=== PATIENT | female | born 1965 | race Caucasian/White ===

== ENCOUNTER 2017-12-28 12:37 | Emergency (ER) | payer MEDICAID, SELFPAY ==
[2017-12-28 12:37] VITALS: BP 151/83; PULSE 96; RESP 15; TEMP 36.3; BMI 34.7
--- NOTE | 2017-12-28 13:09 | ED.VISSUMM ---
- ER Visit Summary Date of Service: 12/28/17 Chief Complaint: Bilateral Foot Pain History of Present Illness: The patient is a 52 F who states that she has bilateral feet pain due to muscle spasm. She states that she has a neurologic condition that is being evaluated by neurology and rheumatology pain management to her primary care doctor. This results in occasional muscle spasm. She takes she takes gabapentin and Flexeril. She states that when this happens she needs a shot of pain medicine and Valium. She called her doctors who told her to come to the emergency department today. She states that she did have Valium at home but her primary care doctor remove this due to possible interactions with Flexeril. Physical Examination: Afebrile vital signs are stable Gen: Well-nourished well-developed Head: Normocephalic atraumatic Eyes: Perrl EOMI ENT: TMs clear no rhinorrhea moist mucous membranes Neck: Supple no lymphadenopathy no JVD nontender CVS: Regular rate rhythm no murmurs normal S1-S2 Respiratory: No distress clear to auscultation bilaterally chest nontender Abdomen: Soft nontender nondistended normal bowel sounds no masses Extremity: no edema the bilateral feet have plantar curling of the toes. Skin: Normal color no rash Neuro: alert orientated ?3 CN II-XII Psych: Normal affect normal mood Emergency Department Course and Treatment: Patient will receive oxycodone and diazepam orally. There is no injectable diazepam available at this time for me to use. Patient will follow up with her doctors. Please see T-sheet findings if needed Impression: 1. Bilateral feet spasm This note was generated with [employer] dictation software. It may contain incorrect words, spelling, and punctuation that were not noted in review of the chart prior to signing ED Disposition - Plan for ED Patient: Disposition: Home or Assisted Living Chief Complaint: Other, Pain/Inj Instructions: ED Spasm Muscle Prescriptions: Diazepam [Valium] 5 mg PO Q8 PRN #5 tab PRN Reason: Muscle Spasm Referrals: Jackie Astorga DO [Primary Care Provider] - (call to arrange follow up appointment)
[2017-12-28] MEDS: oxyCODONE 5 MG Tablet 10 MG PO (13:28)
[2017-12-28] MEDS: diazePAM 5 MG Tablet PO (13:30)
== END 2017-12-28 15:15 | disposition home or self-care (01) ==
PROVIDERS: Emergency Provider Emergency Medicine
DX: M62.838 Other muscle spasm (principal); M25.571 Pain in right ankle and joints of right foot; M25.572 Pain in left ankle and joints of left foot; G71.11 Myotonic muscular dystrophy; Z79.899 Other long term (current) drug therapy
CPT/HCPCS: 99281

== ENCOUNTER 2018-09-27 11:44 | Observation (INO) | payer MEDICAID, SELFPAY ==
[2018-09-27] VITALS (16 sets, daily range): BP systolic 98–148; BP diastolic 55–90; PULSE 58–86; RESP 12–23; TEMP 36.1–36.9; O2SAT 94–97; BMI 34.7; BMI 35.4
--- NOTE | 2018-09-27 12:12 | EKG12_ITS ---
Test Reason : CP Blood Pressure : / mmHG Vent. Rate : 080 BPM Atrial Rate : 080 BPM P-R Int : 128 ms QRS Dur : 080 ms QT Int : 366 ms P-R-T Axes : 060 070 044 degrees QTc Int : 422 ms Normal sinus rhythm Nonspecific T wave abnormality Abnormal ECG Confirmed by TRIXIE SIMONS, RHONDA ([id number]), research editor [employer]EL ([id number]) on 09/29/2018 9:41:56 AM Referred By: CHRIS
--- NOTE | 2018-09-27 12:13 | RAD_ITS ---
STUDY: X-RAY CHEST REASON FOR EXAM: Female, 53 years old. One-week history of hypertension and chest pain. TECHNIQUE: PA and lateral views of the chest. COMPARISON: Comparison is made with prior study dated July 23, 2017. FINDINGS: EKG electrodes are seen. Stable elevation of the anterior aspect of the right hemidiaphragm. Stable calcified granuloma in the medial right lower lung. No acute abnormality is seen. There is no demonstrated pleural abnormality. Normal size heart. Normal mediastinum and karol. Normal visualized pulmonary arteries. Normal visualized aortic arch and descending thoracic aorta. Normal visualized thoracic spine. Normal visualized ribs, clavicles, and shoulders. There is no demonstrated abnormality of the visualized soft tissue structures of the upper abdomen. RAD/Chest PA and Lateral IMPRESSION: Normal x-ray examination of the chest. Electronically Signed: Alo Slater MD at 13:49 EST , Service support ,
--- NOTE | 2018-09-27 12:14 | ED.VISSUMM ---
- ER Visit Summary Date of Service: 09/27/18 Chief Complaint: Chest heaviness History of Present Illness: The patient is a 53 F who presents for 2 days of chest heaviness. She states it feels like an elephant is sitting on her chest. Onset was during exertion. The heaviness gets worse with exertion and patient states at that time she also becomes very sweaty. She will have associated shortness of breath with it. She denies fever, URI symptoms, cough, nausea, vomiting or diarrhea. She does have some associated left-sided abdominal pain that began 3 days ago and is sharp. Patient states her blood pressures also been high since mid last week and that is new for her. She has history of diabetes, high cholesterol, hysterectomy. Strong family history of coronary artery disease in all her parents and siblings. She denies any recent travel, surgery, history of DVT or PE, or oral contraceptive use. She is a smoker. Physical Examination: Vital signs: afebrile, hemodynamically stable, no hypoxia on room air General: well nourished, well developed, in no distress Skin: warm, dry, no rash, no pallor HEENT: normocephalic and atraumatic; PERRL, EOMI, moist mucous membranes Cardiovascular: regular rate and rhythm without murmurs, no peripheral edema, 2+ pulses all distal extremities Respiratory: No increased work of breathing, lungs are clear to auscultation bilaterally, no rales, rhonchi or wheezing Abdominal: Abdomen is soft, nontender with normoactive bowel sounds, no guarding or rebound, no masses MSK: Moves all extremities, no deformities, normal strength Neuro: Awake and alert, oriented ?4. No facial droop, sensation and motor function intact and symmetric Test Results: Abnormal Lab Results 09/27/18 09/27/18 09/27/18 12:42 12:42 12:42 WBC 8.2 RBC 4.83 Hgb 14.7 Hct 47.1 H MCV 97.5 MCH 30.4 MCHC 31.2 L RDW 13.3 RDW Differential 47.6 H Plt Count 201 MPV 10.0 Immature Gran % (Auto) 0.200 Neut % (Auto) 50.7 Lymph % (Auto) 40.7 [place] % (Auto) 4.9 Eos % (Auto) 3.1 Baso % (Auto) 0.4 Absolute Neuts (auto) 4.1 Absolute Lymphs (auto) 3.32 Total Counted Not Reportable PT 12.2 INR 0.9 APTT 26.5 D-Dimer Quant (PE/DVT) 0.56 H* Sodium 139 Potassium 4.1 Chloride 103 Carbon Dioxide 30.0 Anion Gap 6 BUN 17 Creatinine 1.05 H Estim Creat Clear Calc 51.26 Est GFR (MDRD) Af Amer 70 Est GFR (MDRD) Non-Af 58 L BUN/Creatinine Ratio 16.2 Glucose 134 H Calcium 9.1 Total Bilirubin 0.40 AST 25 ALT 31 Alkaline Phosphatase 70 Troponin I < 0.015 Total Protein 7.4 Albumin 3.7 Globulin 3.7 Albumin/Globulin Ratio 1.0 Lipase 159 Clinical Impression(s) from Imaging Studies Chest X-Ray 09/27/18 12:13 IMPRESSION: Normal x-ray examination of the chest. Electronically Signed: Alo Slater MD at 13:49 EST , Service support , Lung Scan-VQ ND 09/27/18 13:58 IMPRESSION: 1. VERY LOW PROBABILITY FOR PULMONARY EMBOLUS (<10%) 99m Tc DTPA aerosol ventilation / 99m Tc MAA pulmonary perfusion imaging examination, according to PIOPED II interpretive criteria with regard given to the presence of > 2 ventilation-perfusion matches without corresponding radiographic changes. (Sotsemy et al, Radiology 246: 941, 2008 Sowinter et al, J Nucl Med 49: 1741, 2008). Electronically Signed: Kishan Boss DO at 17:02 EST Tel , Service support , Medications Given Sodium Chloride () 1,000 mls @ 150 mls/hr IV .Q6H40M NABEEL Last Admin: 09/27/18 12:52 Dose: 150 mls/hr Discontinued Medications Aspirin (Aspirin, Baby) 324 mg PO X1 STA Stop: 09/27/18 12:13 Last Admin: 09/27/18 12:51 Dose: 324 mg Nitroglycerin (Nitrostat) 0.4 mg SUBLINGUAL Q5M NABEEL Stop: 09/27/18 12:26 Last Admin: 09/27/18 13:11 Dose: 0.4 mg Admin: 09/27/18 12:57 Dose: 0.4 mg Admin: 09/27/18 12:52 Dose: 0.4 mg Emergency Department Course and Treatment: Patient states she is allergic to aspirin and any medication that she gets more than 250 mg of. She states it gives her swelling in her lymph nodes. She said if the dose of aspirin is less than 250 mg she can take it. We discussed that this is not an allergy, and thus patient was given aspirin. Initial EKG showed a sinus rhythm with T wave flattening and T wave inversions in some of the anterolateral leads, consistent with patient's prior EKGs. No ischemic changes acutely noted. Initial troponin negative. Chest x-ray showed no acute process. Labs were otherwise unremarkable other than a d-dimer of 0.56. Age-adjusted this is still elevated. Patient is allergic to contrast dye and thus was unable to get a CT angiogram. VQ scan was performed and was very low probability for pulmonary embolism. Because patient has a concerning story, has multiple risk factors including family history, tobacco use, obesity and diabetes, and her age, she is moderate risk for 30-day MACE and would benefit from further cardiac workup (HEART score 5). Repeat EKG at 3 hours was unchanged from the initial one. Repeat troponin is pending. Patient will be discussed with the hospitalist for admission for further chest pain rule out. On reevaluation patient was feeling better. Treatment Plan: [] Disposition: [] Impression: chest pain, concern for ACS This note was generated with [employer] dictation software. It may contain incorrect words, spelling, and punctuation that were not noted in review of the chart prior to signing ED Disposition - Plan for ED Patient: Referrals: Jackie Astorga, [Primary Care Provider] -
[2018-09-27] MEDS: Aspirin 81 MG TAB.CHEW 324 MG PO (12:51)
[2018-09-27] MEDS: 0.9% Normal Saline 1,000 ML 150 ML IV (12:52)
[2018-09-27 12:56] LABS: Absolute Lymphocyte Count 3.32 X10^3/ul (0.83-4.51); Absolute Neutrophil Count 4.1 X10^3/uL (2.0-7.7); Basophil# 0.03 X10^3/uL; Basophil% 0.4 % (0-1); Eosinophil# 0.25 X10^3/uL; Eosinophils% 3.1 % (0-5); Hematocrit 47.1 % (37-47); Hemoglobin 14.7 g/dl (12.0-15.0); Lymphocyte # 3.32 X10^3/ul (4.0); Lymphocyte % 40.7 % (19-41); Mean Corp Hgb Conc 31.2 g/gl (32-36); Mean Corpuscular Hgb 30.4 pg (27.0-32.0); Mean Corpuscular Volume 97.5 fL (81-99); Monocyte% 4.9 % (0-10); Neutrophil # 4.14 X10^3/uL (2.7-7.7); Neutrophil % 50.7 % (47-70); Platelet Count 201 K/mm3 (150-450); RBC Distribution Width CV 13.3 % (11.6-14.6); RBC Distribution Width SD 47.6 fl (35.1-43.9); Red Blood Count 4.83 M/mm3 (4.2-5.4); White Blood Count 8.2 K/mm3 (4.4-11.0)
[2018-09-27 12:59] LABS: POSITIVE COUNT NO; POSITIVE DIFFERENTIAL NO; POSITIVE MORPHOLOGY NO
[2018-09-27 13:10] LABS: International Normalized Ratio 0.9; Partial Thromboplast Time 26.5 Seconds (24.1-36.2); Prothrombin Time (Protime)PT. 12.2 SECONDS (11.7-14.9)
[2018-09-27 13:13] LABS: AST(SGOT) 25 U/L (15-37); Alanine Aminotransfer ALT/SGPT 31 U/L (13-56); Albumin, Serum 3.7 g/dL (3.2-5.0); Alkaline Phosphatase 70 U/L (45-117); Anion Gap 6 (5-15); BUN 17 mg/dL (7-18); BUN/Creat Ratio 16.2 RATIO (10-20); Calcium,Total 9.1 mg/dL (8.5-10.1); Chloride 103 mmol/L (98-107); Creatinine, Serum 1.05 mg/dL (0.55-1.02); EST Glomerular Filtration Rate 58 mL/min (>60); Est Glom Filt Rate - Afr Amer 70 mL/min (>60); Estimated Creatinine Clearance 51.26 ml/min; Globulin 3.7 g/dL (2.2-4.2); Glucose 134 mg/dL (74-106); Lipase 159 U/L (73-393); Potassium 4.1 mmol/L (3.5-5.1); Protein, Total 7.4 g/dL (6.4-8.2); Sodium Level 139 mmol/L (136-145)
[2018-09-27 13:20] LABS: D-Dimer Quantitative (DVT/PE) 0.56 FEU/ug/m (0.27-0.49)
--- NOTE | 2018-09-27 13:21 | ED.RN ---
ddimer 0.[address] called from the lab. dr coronado aware
--- NOTE | 2018-09-27 13:58 | NM_ITS ---
CLINICAL: 53-year-old female with history of chest discomfort. VENTILATION-PERFUSION LUNG SCINTIGRAPHY COMPARISON: Plain film chest radiograph 09/27/2018 FINDINGS: The patient was administered 42.7 mCi 99m Tc DTPA aerosol. The aerosol ventilation study demonstrates mild heterogeneous ventilation in the bilateral lung hart without corresponding radiographic changes visualized on review of plain film chest x-ray dated 09/27/2018. Central clumping of the aerosol is not identified. Following the intravenous administration of 5.5 mCi of 99m Tc MAA, the pulmonary perfusion study reveals matching non-uniform perfusion in the right and left lungs correlating with the previously defined ventilation pattern. No moderate subsegmental or large segmental ventilation-perfusion mismatches are noted. NM/Quant Lung Vent/Perf Scan IMPRESSION: 1. VERY LOW PROBABILITY FOR PULMONARY EMBOLUS (<10%) 99m Tc DTPA aerosol ventilation / 99m Tc MAA pulmonary perfusion imaging examination, according to PIOPED II interpretive criteria with regard given to the presence of > 2 ventilation-perfusion matches without corresponding radiographic changes. (Sotsman et al, Radiology 246: 941, 2008 Sowinter et al, J Nucl Med 49: 1741, 2008). Electronically Signed: Kishan Boss DO at 17:02 EST Tel , Service support ,
--- NOTE | 2018-09-27 16:11 | EKG12_ITS ---
Test Reason : CP REPEAT Blood Pressure : / mmHG Vent. Rate : 061 BPM Atrial Rate : 061 BPM P-R Int : 130 ms QRS Dur : 082 ms QT Int : 572 ms P-R-T Axes : 031 062 055 degrees QTc Int : 575 ms Normal sinus rhythm Nonspecific T wave abnormality Prolonged QT Abnormal ECG Confirmed by TRIXIE SIMONS, RHONDA ([id number]), editor dictionary [employer] ([id number]) on 09/29/2018 9:54:06 AM Referred By: VIRGEN Confirmed By:RHONDA MARCUM MD
--- NOTE | 2018-09-27 18:22 | HP.PCM_ITS ---
<Gilma Snow - Last Filed: 09/27/18 18:39> Problem List (1) Ureter, calculus Status: Resolved Comment: admitted with fever and infection has 5mm stone blocking left kidney had UTI now with fevers. (2) RSD (reflex sympathetic dystrophy) Status: Chronic (3) History of kidney stones Status: Chronic (4) Recurrent UTI Status: Chronic (5) Tobacco abuse Status: Chronic (6) Obesity Status: Chronic (7) Type 2 diabetes mellitus Status: Chronic History of Present Illness Date of Admission: 09/27/18 Chief Complaint: Chest pain. The patient is a 53 year old F who presents emergency room due to chest pain. She reports this began Thursday and has occurred intermittently since that time. She reports chest pressure in the center of her chest, feeling like an elephant is sitting on her chest. She describes associated shortness of breath. Denies pain radiation. Denies dizziness, lightheadedness, palpitations. Patient reports a significant family history of heart disease including her mother and father as well as 2 siblings which passed recently due to heart disease. She denies history of cardiac disease. Has never had a stress test or cardiac work up. Patient reports she was referred to the emergency room due to increased blood pressure which she has had for the past week. She states her blood pressure was elevated at primary care office and then also noted to be elevated at follow-up appointment with pain management. Given persistent elevated blood pressure, she reports she was notified by primary care physician to go to the ER. She has a past medical history of chronic pain syndrome, history of kidney stones, tobacco dependence, type 2 diabetes mellitus, chronic kidney disease stage III, obesity. Past Medical History Past Medical History (Chronic Problems): Chronic Problems RSD (reflex sympathetic dystrophy) (Chronic) History of kidney stones (Chronic) Recurrent UTI (Chronic) Tobacco abuse (Chronic) Obesity (Chronic) Type 2 diabetes mellitus (Chronic) Allergies acetaminophen [From Tylenol] Allergy (Verified 12/28/17 12:39) Swollen lymph glands ibuprofen Allergy (Verified 12/28/17 12:39) Swollen lymph glands iodine Allergy (Verified 12/28/17 12:39) Swelling latex Allergy (Verified 12/28/17 12:39) Swelling Penicillins Allergy (Verified 12/28/17 12:39) Swelling shellfish derived Allergy (Verified 12/28/17 12:39) Swelling Sulfa (Sulfonamide Antibiotics) Allergy (Verified 12/28/17 12:39) Swelling 'MYCIN' Adverse Reaction (Uncoded 12/28/17 12:39) Hives ID BAND AND HARD PLASTIC Adverse Reaction (Uncoded 12/28/17 12:39) Rash Home Medications: Ambulatory Orders Medication Instructions Recorded Gabapentin [Neurontin] 300 mg PO TID 12/28/17 Colchicine [Mitigare] 0.6 mg PO BID 09/27/18 Cyclobenzaprine [Flexeril] 10 mg PO TID PRN PRN 09/27/18 Doxycycline 100 mg PO BID 09/27/18 Febuxostat [Uloric] 40 mg PO DAILY 09/27/18 Hydrocodone/Acetaminophen 1 each PO BID PRN 09/27/18 [Hydrocodon-Acetaminophen 5-325] Metformin HCl [Glucophage] 500 mg PO BIDCM 09/27/18 Zolpidem Tartrate [Ambien] 5 mg PO QHS 09/27/18 Surgical History: - - Kidney stone removal/left ureteral stent placement, hysterectomy/tubal ligation Psychiatric History: No pertinent psych hx 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 Denies: Edema, Light Headedness, Palpitations, Syncope Respiratory: Reports: Shortness of Breath - Associated with chest pain. Denies: Cough, Shortness of breath at rest, Sputum production Gastrointestinal: Denies: Abdominal Pain, Nausea, Vomiting Genitourinary: Denies: Dysuria Musculoskeletal: Denies: Joint Pain, Joint Tenderness Skin: Denies: Rash, Wounds Neurological: Denies: Numbness, Tingling, Focal weakness Psychiatric: Denies: Anxiety, Depression, Homicidal Ideations, Suicidal Ideations Hematologic/ Lymphatic: Denies: Easy Bruising, Easy Bleeding VTE Information - Inpt Only VTE Present on Admission: No VTE Mechan Device Prophylaxis: None VTE Pharm Prophylaxis ordered?: Yes - Physical Exam General: Alert, Oriented x3, Cooperative HEENT: Atraumatic, PERRLA, EOMI, Normocephalic Neck: Supple, No JVD, Negative Carotid Bruits Lungs: Clear to auscultation, Diminished Cardiovascular: Regular rate, Regular Rhythm, Normal S1, Normal S2, No murmurs Abdomen: Bowel Sounds Present, Soft, Non Tender, Non-Distended Extremities: No clubbing, No cyanosis, No edema, Capillary Refill Less than 3 Seconds Skin: No rashes, No breakdown Musculoskeletal: No Tenderness to Palpation of Joints or Extremities Neurological: Cranial nerves II-XII grossly intact, Neuro grossly intact Psych/Mental Status: Normal Affect, Appropriate Vital Signs Temp Pulse Resp BP Pulse Ox 97.0 F L 72 23 H 131/65 H 96 09/27/18 11:45 09/27/18 17:14 09/27/18 17:14 09/27/18 18:00 09/27/18 17:14 Oxygen Flow Rate (L/min) 2 Oxygen Delivery Method Nasal Cannula Weight: 196 lb 6.91 oz Body Mass Index (BMI) 34.7 Laboratory Tests Past 24 Hrs 09/27/18 09/27/18 09/27/18 12:42 12:42 12:42 WBC 8.2 RBC 4.83 Hgb 14.7 Hct 47.1 H MCV 97.5 MCH 30.4 MCHC 31.2 L RDW 13.3 RDW Differential 47.6 H Plt Count 201 MPV 10.0 Immature Gran % (Auto) 0.200 Neut % (Auto) 50.7 Lymph % (Auto) 40.7 [place] % (Auto) 4.9 Eos % (Auto) 3.1 Baso % (Auto) 0.4 Absolute Neuts (auto) 4.1 Absolute Lymphs (auto) 3.32 Total Counted Not Reportable PT 12.2 INR 0.9 APTT 26.5 D-Dimer Quant (PE/DVT) 0.56 H* Sodium 139 Potassium 4.1 Chloride 103 Carbon Dioxide 30.0 Anion Gap 6 BUN 17 Creatinine 1.05 H Estim Creat Clear Calc 51.26 Est GFR (MDRD) Af Amer 70 Est GFR (MDRD) Non-Af 58 L BUN/Creatinine Ratio 16.2 Glucose 134 H Calcium 9.1 Total Bilirubin 0.40 AST 25 ALT 31 Alkaline Phosphatase 70 Troponin I < 0.015 Total Protein 7.4 Albumin 3.7 Globulin 3.7 Albumin/Globulin Ratio 1.0 Lipase 159 09/27/18 16:40 WBC RBC Hgb Hct MCV MCH MCHC RDW RDW Differential Plt Count MPV Immature Gran % (Auto) Neut % (Auto) Lymph % (Auto) [place] % (Auto) Eos % (Auto) Baso % (Auto) Absolute Neuts (auto) Absolute Lymphs (auto) Total Counted PT INR APTT D-Dimer Quant (PE/DVT) Sodium Potassium Chloride Carbon Dioxide Anion Gap BUN Creatinine Estim Creat Clear Calc Est GFR (MDRD) Af Amer Est GFR (MDRD) Non-Af BUN/Creatinine Ratio Glucose Calcium Total Bilirubin AST ALT Alkaline Phosphatase Troponin I < 0.015 Total Protein Albumin Globulin Albumin/Globulin Ratio Lipase Assessment/Plan All Active Problems Ureter, calculus (Resolved) 1. Chest pain-EKG in ED with T wave flattening and T wave inversion. No acute ischemic changes. Troponin negative. Chest x-ray unremarkable. Cycle enzymes. Stress test in a.m. Lipid panel in a.m. D-dimer elevated in ER. Lung VQ scan with very low probability for PE. 2. Elevated blood pressure without prior history of hypertension-patient reports her blood pressure has been greater than 170 systolically at home. Currently blood pressure not markedly elevated. Continue to monitor. 3. Type 2 diabetes mellitus-hold metformin regimen. Accu-Cheks ACHS with SSI. 4. Chronic kidney disease stage III-at baseline. 5. Gout-continue home colchicine, uloric regimen. 6. Obesity-encouraged diet and lifestyle modifications. 7. Tobacco dependence-encouraged smoking cessation. DVT prophylaxis- lovenox sc This patient was seen by KEVYN Mittal under the supervision of Dr. Horowitz. <Oli Horowitz F - Last Filed: 09/27/18 19:13> History of Present Illness The patient is a 53 year old F [] Past Medical History Allergies acetaminophen [From Tylenol] Allergy (Verified 12/28/17 12:39) Swollen lymph glands ibuprofen Allergy (Verified 12/28/17 12:39) Swollen lymph glands iodine Allergy (Verified 12/28/17 12:39) Swelling latex Allergy (Verified 12/28/17 12:39) Swelling Penicillins Allergy (Verified 12/28/17 12:39) Swelling shellfish derived Allergy (Verified 12/28/17 12:39) Swelling Sulfa (Sulfonamide Antibiotics) Allergy (Verified 12/28/17 12:39) Swelling 'MYCIN' Adverse Reaction (Uncoded 12/28/17 12:39) Hives ID BAND AND HARD PLASTIC Adverse Reaction (Uncoded 12/28/17 12:39) Rash - Physical Exam Vital Signs Temp Pulse Resp BP Pulse Ox 98.4 F 66 18 132/75 H 96 09/27/18 18:28 09/27/18 18:51 09/27/18 18:28 09/27/18 18:28 09/27/18 18:28 Oxygen Flow Rate (L/min) 2 Oxygen Delivery Method Room Air Weight: 199 lb 11.821 oz Body Mass Index (BMI) 35.4 Laboratory Tests Past 24 Hrs 09/27/18 09/27/18 09/27/18 12:42 12:42 12:42 WBC 8.2 RBC 4.83 Hgb 14.7 Hct 47.1 H MCV 97.5 MCH 30.4 MCHC 31.2 L RDW 13.3 RDW Differential 47.6 H Plt Count 201 MPV 10.0 Immature Gran % (Auto) 0.200 Neut % (Auto) 50.7 Lymph % (Auto) 40.7 [place] % (Auto) 4.9 Eos % (Auto) 3.1 Baso % (Auto) 0.4 Absolute Neuts (auto) 4.1 Absolute Lymphs (auto) 3.32 Total Counted Not Reportable PT 12.2 INR 0.9 APTT 26.5 D-Dimer Quant (PE/DVT) 0.56 H* Sodium 139 Potassium 4.1 Chloride 103 Carbon Dioxide 30.0 Anion Gap 6 BUN 17 Creatinine 1.05 H Estim Creat Clear Calc 51.26 Est GFR (MDRD) Af Amer 70 Est GFR (MDRD) Non-Af 58 L BUN/Creatinine Ratio 16.2 Glucose 134 H Calcium 9.1 Total Bilirubin 0.40 AST 25 ALT 31 Alkaline Phosphatase 70 Troponin I < 0.015 Total Protein 7.4 Albumin 3.7 Globulin 3.7 Albumin/Globulin Ratio 1.0 Lipase 159 09/27/18 16:40 WBC RBC Hgb Hct MCV MCH MCHC RDW RDW Differential Plt Count MPV Immature Gran % (Auto) Neut % (Auto) Lymph % (Auto) [place] % (Auto) Eos % (Auto) Baso % (Auto) Absolute Neuts (auto) Absolute Lymphs (auto) Total Counted PT INR APTT D-Dimer Quant (PE/DVT) Sodium Potassium Chloride Carbon Dioxide Anion Gap BUN Creatinine Estim Creat Clear Calc Est GFR (MDRD) Af Amer Est GFR (MDRD) Non-Af BUN/Creatinine Ratio Glucose Calcium Total Bilirubin AST ALT Alkaline Phosphatase Troponin I < 0.015 Total Protein Albumin Globulin Albumin/Globulin Ratio Lipase Code Visit Addendum: Dr. Horowitz I personally examined the patient and reviewed the chart. I agree with the above. 53-year-old female with a history of diabetes as well as tobacco use presents with chest pain since Thursday. She states that it is intermittent and it feels like an elephant is sitting on her chest. She does have associated shortness of breath. She has a family history of heart disease with both of her parents and a sibling. In the ER her troponin was negative and her EKG was unremarkable. Will admit for serial enzymes and a stress test in the morning, she does not think she will be able to perform a treadmill stress test because of her RSD. OBSV E&M: [id number] Initial observation care L3
[2018-09-27] MEDS: Zolpidem Tartrate 5 MG Tablet PO (20:56)
[2018-09-27 22:21] LABS: Bedside Glucose 141 mg/dL (70-110)
[2018-09-27] MEDS: Gabapentin 300 MG Capsule PO (23:02)
[2018-09-27] MEDS: Insulin Lispro 100 UNIT/ML INSULN.PEN SQ (23:05)
--- NOTE | 2018-09-27 23:15 | NURSING ---
assisted patient to [facility] across from room 202 this evening. while getting patient a cup of coffee, patient became very SOB and lightheaded. stated she felt like she could not catch her breath. patient stated she was also having sharp chest pain under her left breast. this RN called Aicha charge account clerk to come bring WC to [facility]. patient was wheeled back to her room. RT was called to do an EKG. (no changes were noted on EKG). VSS. patient stated she felt like she was getting her breath back and that her chest pain was resolving.
--- NOTE | 2018-09-27 23:19 | EKG12_ITS ---
Test Reason : DIZZY Blood Pressure : / mmHG Vent. Rate : 062 BPM Atrial Rate : 062 BPM P-R Int : 126 ms QRS Dur : 082 ms QT Int : 422 ms P-R-T Axes : 020 070 068 degrees QTc Int : 428 ms Normal sinus rhythm Nonspecific T wave abnormality Abnormal ECG Confirmed by TRIXIE SIMONS, RHONDA ([id number]), mapping editor [employer] ([id number]) on 09/29/2018 10:10:33 AM Referred By: DR JACKSON Confirmed By:RHONDA MARCUM MD
[2018-09-27 23:26] LABS: Bedside Glucose 163 mg/dL (70-110)
[2018-09-28 03:01] VITALS: PULSE 68
[2018-09-28 03:55] VITALS: BP 93/65; PULSE 62; RESP 18; TEMP 36.8; O2SAT 96
[2018-09-28 05:43] LABS: Absolute Neutrophil Count 2.9 X10^3/uL (2.0-7.7); Basophil# 0.02 X10^3/uL; Basophil% 0.2 % (0-1); Eosinophil# 0.29 X10^3/uL; Eosinophils% 3.6 % (0-5); Hematocrit 43.8 % (37-47); Hemoglobin 13.6 g/dl (12.0-15.0); Lymphocyte % 54.3 % (19-41); Mean Corp Hgb Conc 31.1 g/gl (32-36); Mean Corpuscular Hgb 30.6 pg (27.0-32.0); Mean Corpuscular Volume 98.4 fL (81-99); Mean Platelet Vol. 10.2 fl (6.2-12.0); Monocyte# 0.47 X10^3/uL; Monocyte% 5.8 % (0-10); Neutrophil # 2.91 X10^3/uL (2.7-7.7); Neutrophil % 35.9 % (47-70); Platelet Count 175 K/mm3 (150-450); RBC Distribution Width CV 13.5 % (11.6-14.6); RBC Distribution Width SD 48.3 fl (35.1-43.9); Red Blood Count 4.45 M/mm3 (4.2-5.4); White Blood Count 8.1 K/mm3 (4.4-11.0)
[2018-09-28 05:48] LABS: POSITIVE COUNT NO; POSITIVE DIFFERENTIAL NO; POSITIVE MORPHOLOGY NO
[2018-09-28 05:54] LABS: International Normalized Ratio 0.9; Partial Thromboplast Time 28.5 Seconds (24.1-36.2); Prothrombin Time (Protime)PT. 11.9 SECONDS (11.7-14.9)
--- NOTE | 2018-09-28 05:55 | EKG12_ITS ---
Test Reason : AM EKG Blood Pressure : / mmHG Vent. Rate : 061 BPM Atrial Rate : 061 BPM P-R Int : 122 ms QRS Dur : 082 ms QT Int : 434 ms P-R-T Axes : 039 079 082 degrees QTc Int : 436 ms Normal sinus rhythm T wave abnormality, consider anterior ischemia Abnormal ECG Confirmed by TRIXIE SIMONS, RHONDA ([id number]), electronic news gathering editor [employer] ([id number]) on 09/29/2018 10:09:14 AM Referred By: ASHLY Confirmed By:RHONDA MARCUM MD
[2018-09-28 06:03] LABS: Anion Gap 7 (5-15); BUN 20 mg/dL (7-18); BUN/Creat Ratio 20.9 RATIO (10-20); Calcium,Total 8.4 mg/dL (8.5-10.1); Chloride 105 mmol/L (98-107); Cholesterol 214 mg/dL (200); Creatinine, Serum 0.96 mg/dL (0.55-1.02); EST Glomerular Filtration Rate 65 mL/min (>60); Est Glom Filt Rate - Afr Amer 78 mL/min (>60); Estimated Creatinine Clearance 56.06 ml/min; Glucose 146 mg/dL (74-106); High Density Lipoprotein 28 mg/dL; Potassium 3.8 mmol/L (3.5-5.1); Sodium Level 142 mmol/L (136-145); Triglycerides 454 mg/dL
--- NOTE | 2018-09-28 06:49 | STEWCON_ITS ---
Reason For Study: CHEST PAIN Stress Results Protocol: Dobutamine Stress Echocardiogram Maximum Predicted HR: 167 bpm Target HR: 142 bpm % Maximum Predicted HR: 80 % DurationHeart Rate Stage (mm:ss) (bpm) BP Dose Comment BASELINE 63 113/76 6 ML OF DILUTED DEFINITY USED DURING STRESS DSE- 10 MCG 3:27 68 142/90945.00 DSE- 20 MCG 4:59 133 160/82 20.00VASOVAGAL RESPONSE, SIFUENTES RECOVERY 70 109/63 Stress Duration: 8:26 mm:ss Maximum Stress HR: 133 bpm Baseline Echocardiogram Findings Stress Echo Wall motion Data Resting WM Intermediate WM Stress WM Resting Wall Motion Wall Motion Int. Wall Motion Stress All segments Normal. All segments Hyperkinetic. All segments Hyperkinetic. Ejection Fraction 60 %. Ejection Fraction 70 %. Ejection Fraction 80 %. Stress Results Arrhythmias: rare PVC during infusion Stopped secondary to: target heart rate achieved. EKG Data ECG BASELINE: NSR; NS ST/T WAVE ABNORMALITY. [facility] ECG: NONSPECIFIC ST/T WAVE ABNORMALITY. Symptoms with Stress No c/o chest discomfort during infusion / recovery. Interpretation Summary Negative (adequate) Dobutamine Stress Echocardiogram The study was technically difficult. Contrast injection was performed. Ordering Physician: Mikey Howard Referring Physician: Jackie Astorga DO Performed By: Herminio Hurt RCS
[2018-09-28 07:02] LABS: Bedside Glucose 155 mg/dL (70-110)
[2018-09-28 07:12] VITALS: PULSE 62
[2018-09-28 09:50] VITALS: BP 124/78; PULSE 72; RESP 18; TEMP 36.5; O2SAT 97
[2018-09-28] MEDS: Febuxostat 40 MG TABLET PO (10:00)
[2018-09-28] MEDS: Gabapentin 300 MG Capsule PO (10:00)
[2018-09-28] MEDS: HYDROcodone Bitartrate/Apap 5/325 Tablet PO (10:04)
[2018-09-28 10:06] LABS: Bedside Glucose 132 mg/dL (70-110)
--- NOTE | 2018-09-28 10:19 | DCINST_ITS ---
You will use the following diet at home:: Calorie/Carbohydrate Controlled (specify 1200, 1400, etc) Discharge Activity: Return to Normal Activity Call your doctor if you observe: Shortness of breath, Dizziness, Fainting spells, Chest pain Allergies/Adverse Reactions: Allergies acetaminophen [From Tylenol] Allergy (Verified 12/28/17 12:39) Swollen lymph glands ibuprofen Allergy (Verified 12/28/17 12:39) Swollen lymph glands iodine Allergy (Verified 12/28/17 12:39) Swelling latex Allergy (Verified 12/28/17 12:39) Swelling Penicillins Allergy (Verified 12/28/17 12:39) Swelling shellfish derived Allergy (Verified 12/28/17 12:39) Swelling Sulfa (Sulfonamide Antibiotics) Allergy (Verified 12/28/17 12:39) Swelling 'MYCIN' Adverse Reaction (Uncoded 12/28/17 12:39) Hives ID BAND AND HARD PLASTIC Adverse Reaction (Uncoded 12/28/17 12:39) Rash Medications to take at Discharge Gabapentin [Neurontin] 300 mg PO TID 12/28/17 Colchicine [Mitigare] 0.6 mg PO BID 09/27/18 Cyclobenzaprine [Flexeril] 10 mg PO TID PRN PRN 09/27/18 Doxycycline 100 mg PO BID 09/27/18 Febuxostat [Uloric] 40 mg PO DAILY 09/27/18 Hydrocodone/Acetaminophen [Hydrocodon-Acetaminophen 5-325] 1 each PO BID PRN 09/27/18 Metformin HCl [Glucophage] 500 mg PO BIDCM 09/27/18 Zolpidem Tartrate [Ambien] 5 mg PO QHS 09/27/18 Primary Care Physician: Jackie Astorga DO [Primary Care Provider] - Please follow up with your Primary Care Physician in: 1 Week Test Results: Test results from this visit will be discussed in further detail at your follow- up appointment, if applicable. Proposed Discharge Date: 09/28/18
--- NOTE | 2018-09-28 10:19 | PCM.DC.SUM ---
<Gilma nSow - Last Filed: 09/28/18 10:30> Discharge Date and Diagnosis Date of Admission: 09/27/18 Date of Discharge: 09/28/18 - Primary Discharge Diagnosis 1. Noncardiac chest pain, ACS rule out - Secondary Discharge Diagnosis Chronic Problems RSD (reflex sympathetic dystrophy) (Chronic) History of kidney stones (Chronic) Recurrent UTI (Chronic) Tobacco abuse (Chronic) Obesity (Chronic) Type 2 diabetes mellitus (Chronic) Hospital Course and Treatment Imaging Results: Diagnostic Data Chest X-Ray 09/27/18 12:13 IMPRESSION: Normal x-ray examination of the chest. Electronically Signed: Alo Slater MD at 13:49 EST , Service support , Lung Scan-VQ NM 09/27/18 13:58 IMPRESSION: 1. VERY LOW PROBABILITY FOR PULMONARY EMBOLUS (<10%) 99m Tc DTPA aerosol ventilation / 99m Tc MAA pulmonary perfusion imaging examination, according to PIOPED II interpretive criteria with regard given to the presence of > 2 ventilation-perfusion matches without corresponding radiographic changes. (Sotsman et al, Radiology 246: 941, 2008 Sotsman et al, J Nucl Med 49: 1741, 2008). Electronically Signed: Kishan Boss DO at 17:02 EST Tel , Service support , Operations: None Procedures: Stress test Summary of Care Provided: The patient is a 53 year old F admitted 09/27/18 due to chest pain. 1. Noncardiac chest pain-EKG in ED with T wave flattening and T wave inversion. No acute ischemic changes. Troponin negative. Chest x-ray unremarkable. D-dimer elevated in ER. Lung VQ scan with very low probability for PE. Patient underwent stress test which was negative for ischemia. Patient reports she has had increased acid reflux symptoms over the past few weeks. Will discharge on Protonix 40 mg daily. Follow-up with primary care physician in 1 week. 2. Elevated blood pressure without prior history of hypertension-patient reports her blood pressure has been greater than 170 systolically at home. Blood pressure has been stable during admission without pharmacologic intervention. Blood pressure 120-130 systolically. Instructed patient to check blood pressure twice daily at home and document findings to report to primary care physician at follow-up. 3. Type 2 diabetes mellitus-continue home metformin regimen. 4. Chronic kidney disease stage III-at baseline. 5. Gout-continue home colchicine, uloric regimen. 6. Obesity-encouraged diet and lifestyle modifications. 7. Tobacco dependence-encouraged smoking cessation. General: Alert, Oriented x3, Cooperative HEENT: Atraumatic, PERRLA, EOMI, Normocephalic Neck: Supple, No JVD, Negative Carotid Bruits Lungs: Clear to auscultation, Diminished Cardiovascular: Regular rate, Regular Rhythm, Normal S1, Normal S2, No murmurs Abdomen: Bowel Sounds Present, Soft, Non Tender, Non-Distended Extremities: No clubbing, No cyanosis, No edema, Capillary Refill Less than 3 Seconds Skin: No rashes, No breakdown Musculoskeletal: No Tenderness to Palpation of Joints or Extremities Neurological: Cranial nerves II-XII grossly intact, Neuro grossly intact Psych/Mental Status: Normal Affect, Appropriate Patient seen and examined prior to discharge. Physical assessment as noted above. Patient is stable for discharge with follow up recommendations as noted above. This patient was seen by KEVYN Mittal under the supervision of Dr. Buenrostro. - Physical Exam Vital Signs Temp Pulse Resp BP Pulse Ox 97.7 F L 72 18 124/78 H 97 09/28/18 09:50 09/28/18 09:50 09/28/18 09:50 09/28/18 09:50 09/28/18 09:50 Oxygen Flow Rate (L/min) 2 Oxygen Delivery Method Room Air Weight: 199 lb 11.821 oz Body Mass Index (BMI) 35.4 Intake and Output for Last 24 Hours 09/26/18 09/27/18 09/28/18 23:59 23:59 23:59 Intake Total 930 / 930 Balance 930 / 930 Laboratory Tests Past 24 Hrs 09/27/18 09/27/18 09/27/18 12:42 12:42 12:42 WBC 8.2 RBC 4.83 Hgb 14.7 Hct 47.1 H MCV 97.5 MCH 30.4 MCHC 31.2 L RDW 13.3 RDW Differential 47.6 H Plt Count 201 MPV 10.0 Immature Gran % (Auto) 0.200 Neut % (Auto) 50.7 Lymph % (Auto) 40.7 Barber % (Auto) 4.9 Eos % (Auto) 3.1 Baso % (Auto) 0.4 Absolute Neuts (auto) 4.1 Absolute Lymphs (auto) 3.32 Total Counted Not Reportable PT 12.2 INR 0.9 APTT 26.5 D-Dimer Quant (PE/DVT) 0.56 H* Sodium 139 Potassium 4.1 Chloride 103 Carbon Dioxide 30.0 Anion Gap 6 BUN 17 Creatinine 1.05 H Estim Creat Clear Calc 51.26 Est GFR (MDRD) Af Amer 70 Est GFR (MDRD) Non-Af 58 L BUN/Creatinine Ratio 16.2 Glucose 134 H Calcium 9.1 Total Bilirubin 0.40 AST 25 ALT 31 Alkaline Phosphatase 70 Troponin I < 0.015 Total Protein 7.4 Albumin 3.7 Globulin 3.7 Albumin/Globulin Ratio 1.0 Triglycerides Cholesterol LDL Cholesterol VLDL Cholesterol HDL Cholesterol Lipase 159 09/27/18 09/27/18 09/28/18 16:40 20:10 05:15 WBC RBC Hgb Hct MCV MCH MCHC RDW RDW Differential Plt Count MPV Immature Gran % (Auto) Neut % (Auto) Lymph % (Auto) Barber % (Auto) Eos % (Auto) Baso % (Auto) Absolute Neuts (auto) Absolute Lymphs (auto) Total Counted PT INR APTT D-Dimer Quant (PE/DVT) Sodium 142 Potassium 3.8 Chloride 105 Carbon Dioxide 30.0 Anion Gap 7 BUN 20 H Creatinine 0.96 Estim Creat Clear Calc 56.06 Est GFR (MDRD) Af Amer 78 Est GFR (MDRD) Non-Af 65 BUN/Creatinine Ratio 20.9 H Glucose 146 H Calcium 8.4 L Total Bilirubin AST ALT Alkaline Phosphatase Troponin I < 0.015 < 0.015 Total Protein Albumin Globulin Albumin/Globulin Ratio Triglycerides 454 H Cholesterol 214 H LDL Cholesterol TNP VLDL Cholesterol TNP HDL Cholesterol 28 L Lipase 09/28/18 09/28/18 05:15 05:15 WBC 8.1 RBC 4.45 Hgb 13.6 Hct 43.8 MCV 98.4 MCH 30.6 MCHC 31.1 L RDW 13.5 RDW Differential 48.3 H Plt Count 175 MPV 10.2 Immature Gran % (Auto) 0.200 Neut % (Auto) 35.9 L Lymph % (Auto) 54.3 H Barber % (Auto) 5.8 Eos % (Auto) 3.6 Baso % (Auto) 0.2 Absolute Neuts (auto) 2.9 Absolute Lymphs (auto) 4.40 Total Counted Not Reportable PT 11.9 INR 0.9 APTT 28.5 D-Dimer Quant (PE/DVT) Sodium Potassium Chloride Carbon Dioxide Anion Gap BUN Creatinine Estim Creat Clear Calc Est GFR (MDRD) Af Amer Est GFR (MDRD) Non-Af BUN/Creatinine Ratio Glucose Calcium Total Bilirubin AST ALT Alkaline Phosphatase Troponin I Total Protein Albumin Globulin Albumin/Globulin Ratio Triglycerides Cholesterol LDL Cholesterol VLDL Cholesterol HDL Cholesterol Lipase POC Glucose 09/28/18 09/28/18 09/27/18 09:51 06:59 23:04 POC Glucose 132 H 155 H 163 H 09/27/18 20:54 POC Glucose 141 H Discharge Diet: Carb Control Diet Discharge Activity: Return to Normal Activity Call your doctor if you observe: Shortness of breath, Dizziness, Fainting spells, Chest pain Home Medications: Medications to take at Discharge Gabapentin [Neurontin] 300 mg PO TID 12/28/17 Colchicine [Mitigare] 0.6 mg PO BID 09/27/18 Cyclobenzaprine [Flexeril] 10 mg PO TID PRN PRN 09/27/18 Doxycycline 100 mg PO BID 09/27/18 Febuxostat [Uloric] 40 mg PO DAILY 09/27/18 Hydrocodone/Acetaminophen [Hydrocodon-Acetaminophen 5-325] 1 each PO BID PRN 09/27/18 Metformin HCl [Glucophage] 500 mg PO BIDCM 09/27/18 Zolpidem Tartrate [Ambien] 5 mg PO QHS 09/27/18 Pantoprazole Sodium [Protonix] 40 mg PO DAILY #30 tablet 09/28/18 Following Prescrptions Were Given to Patient: Pantoprazole Sodium [Protonix] 40 mg PO DAILY #30 tablet Primary Care Physician: Jackie Astorga DO [Primary Care Provider] - Please follow up with your Primary Care Physician in: 1 Week Disposition: Home Minutes spent on discharge:: 35 Patient Condition:: Stable Medical Necessity - Tobacco Use Smoking Status: Current every day smoker Tobacco Use: Cigarettes Meaningful Use Info Meaningful Use Diagnoses (Choose all that apply): None applicable <Shirley Buenrostro E - Last Filed: 09/28/18 14:15> Discharge Date and Diagnosis - Secondary Discharge Diagnosis Chronic Problems RSD (reflex sympathetic dystrophy) (Chronic) History of kidney stones (Chronic) Recurrent UTI (Chronic) Tobacco abuse (Chronic) Obesity (Chronic) Type 2 diabetes mellitus (Chronic) Hospital Course and Treatment Imaging Results: 09/28/18 06:49 Stress Test Echo W/Contrast [ECHO] Routine Summary of Care Provided: Hospitalist note: Discharge summary above reviewed as well as physical examination and I agree with the above discharge plan. Patient was admitted for chest pain for evaluation. Her chest pain was atypical for CAD or ACS. Her cardiac workup was unremarkable. Her EKG revealed normal sinus rhythm with flattening of T waves: There was no acute ischemic changes. Troponin was negative x3. Chest x-ray showed no acute findings. D-dimer was elevated for which VQ lung scan performed and showed very low probability of pulmonary emboli. Routine blood work was unremarkable. Her vital signs were stable throughout admission. Acute coronary syndrome ruled out. She was found to have elevated triglycerides and total cholesterol, dietary modifications and diet control recommended. The chest pain could be due to GERD. He was discharged home in a stable medical condition, discharged on Protonix, continued on her chronic home medication without any changes, recommended that controlled for high cholesterol, follow-up with PCP in 1 week. This note was generated with [employer] dictation software. It may contain incorrect words, spelling, and punctuation that were not noted in checking the note before signing. - Physical Exam Vital Signs Temp Pulse Resp BP Pulse Ox 97.7 F L 72 18 124/78 H 97 09/28/18 09:50 09/28/18 09:50 09/28/18 09:50 09/28/18 09:50 09/28/18 09:50 Oxygen Flow Rate (L/min) 2 Oxygen Delivery Method Room Air Weight: 199 lb 11.821 oz Body Mass Index (BMI) 35.4 Intake and Output for Last 24 Hours 09/26/18 09/27/18 09/28/18 23:59 23:59 23:59 Intake Total 930 / 930 Balance 930 / 930 Laboratory Tests Past 24 Hrs 02/18/19 02/18/19 02/19/19 16:40 20:10 05:15 WBC RBC Hgb Hct MCV MCH MCHC RDW RDW Differential Plt Count MPV Immature Gran % (Auto) Neut % (Auto) Lymph % (Auto) Barber % (Auto) Eos % (Auto) Baso % (Auto) Absolute Neuts (auto) Absolute Lymphs (auto) Total Counted PT INR APTT Sodium 142 Potassium 3.8 Chloride 105 Carbon Dioxide 30.0 Anion Gap 7 BUN 20 H Creatinine 0.96 Estim Creat Clear Calc 56.06 Est GFR (MDRD) Af Amer 78 Est GFR (MDRD) Non-Af 65 BUN/Creatinine Ratio 20.9 H Glucose 146 H Calcium 8.4 L Troponin I < 0.015 < 0.015 Triglycerides 454 H Cholesterol 214 H LDL Cholesterol TNP VLDL Cholesterol TNP HDL Cholesterol 28 L 09/28/18 09/28/18 05:15 05:15 WBC 8.1 RBC 4.45 Hgb 13.6 Hct 43.8 MCV 98.4 MCH 30.6 MCHC 31.1 L RDW 13.5 RDW Differential 48.3 H Plt Count 175 MPV 10.2 Immature Gran % (Auto) 0.200 Neut % (Auto) 35.9 L Lymph % (Auto) 54.3 H Barber % (Auto) 5.8 Eos % (Auto) 3.6 Baso % (Auto) 0.2 Absolute Neuts (auto) 2.9 Absolute Lymphs (auto) 4.40 Total Counted Not Reportable PT 11.9 INR 0.9 APTT 28.5 Sodium Potassium Chloride Carbon Dioxide Anion Gap BUN Creatinine Estim Creat Clear Calc Est GFR (MDRD) Af Amer Est GFR (MDRD) Non-Af BUN/Creatinine Ratio Glucose Calcium Troponin I Triglycerides Cholesterol LDL Cholesterol VLDL Cholesterol HDL Cholesterol POC Glucose 09/28/18 09/28/18 09/27/18 09:51 06:59 23:04 POC Glucose 132 H 155 H 163 H 09/27/18 20:54 POC Glucose 141 H Disposition: Home Minutes spent on discharge:: 25 Patient Condition:: Stable Meaningful Use Info Meaningful Use Diagnoses (Choose all that apply): None applicable Code Visit OBSV E&M: 05841 Observation care discharge
--- NOTE | 2018-09-28 10:25 | DS.PCM_ITS ---
Addendum entered and electronically signed by KEVYN Mittal 09/28/18 10:31: Code Visit Patient will need further follow-up with primary care physician regarding elevated lipid panel: Triglycerides 454, total cholesterol 214. Recommend dietary modifications and repeat lipid panel by primary care physician. Original Note: <Gilma Snow - Last Filed: 09/28/18 10:30> Discharge Date and Diagnosis Date of Admission: 09/27/18 Date of Discharge: 09/28/18 - Primary Discharge Diagnosis 1. Noncardiac chest pain, ACS rule out - Secondary Discharge Diagnosis Chronic Problems RSD (reflex sympathetic dystrophy) (Chronic) History of kidney stones (Chronic) Recurrent UTI (Chronic) Tobacco abuse (Chronic) Obesity (Chronic) Type 2 diabetes mellitus (Chronic) Hospital Course and Treatment Imaging Results: Diagnostic Data Chest X-Ray 09/27/18 12:13 IMPRESSION: Normal x-ray examination of the chest. Electronically Signed: Alo Slater MD at 13:49 EST , Service support , Lung Scan-VQ NM 09/27/18 13:58 IMPRESSION: 1. VERY LOW PROBABILITY FOR PULMONARY EMBOLUS (<10%) 99m Tc DTPA aerosol ventilation / 99m Tc MAA pulmonary perfusion imaging examination, according to PIOPED II interpretive criteria with regard given to the presence of > 2 ventilation-perfusion matches without corresponding radiographic changes. (Sotsman et al, Radiology 246: 941, 2008 Sotsemy et al, J Nucl Med 49: 1741, 2008). Electronically Signed: Kishan Boss DO at 17:02 EST Tel , Service support , Operations: None Procedures: Stress test Summary of Care Provided: The patient is a 53 year old F admitted 09/27/18 due to chest pain. 1. Noncardiac chest pain-EKG in ED with T wave flattening and T wave inversion. No acute ischemic changes. Troponin negative. Chest x-ray unremarkable. D- dimer elevated in ER. Lung VQ scan with very low probability for PE. Patient underwent stress test which was negative for ischemia. Patient reports she has had increased acid reflux symptoms over the past few weeks. Will discharge on Protonix 40 mg daily. Follow-up with primary care physician in 1 week. 2. Elevated blood pressure without prior history of hypertension-patient reports her blood pressure has been greater than 170 systolically at home. Blood pressure has been stable during admission without pharmacologic intervention. Blood pressure 120-130 systolically. Instructed patient to check blood pressure twice daily at home and document findings to report to primary care physician at follow-up. 3. Type 2 diabetes mellitus-continue home metformin regimen. 4. Chronic kidney disease stage III-at baseline. 5. Gout-continue home colchicine, uloric regimen. 6. Obesity-encouraged diet and lifestyle modifications. 7. Tobacco dependence-encouraged smoking cessation. General: Alert, Oriented x3, Cooperative HEENT: Atraumatic, PERRLA, EOMI, Normocephalic Neck: Supple, No JVD, Negative Carotid Bruits Lungs: Clear to auscultation, Diminished Cardiovascular: Regular rate, Regular Rhythm, Normal S1, Normal S2, No murmurs Abdomen: Bowel Sounds Present, Soft, Non Tender, Non-Distended Extremities: No clubbing, No cyanosis, No edema, Capillary Refill Less than 3 Seconds Skin: No rashes, No breakdown Musculoskeletal: No Tenderness to Palpation of Joints or Extremities Neurological: Cranial nerves II-XII grossly intact, Neuro grossly intact Psych/Mental Status: Normal Affect, Appropriate Patient seen and examined prior to discharge. Physical assessment as noted above. Patient is stable for discharge with follow up recommendations as noted above. This patient was seen by KEVYN Mittal under the supervision of Dr. Buenrostro. - Physical Exam Vital Signs Temp Pulse Resp BP Pulse Ox 97.7 F L 72 18 124/78 H 97 09/28/18 09:50 09/28/18 09:50 09/28/18 09:50 09/28/18 09:50 09/28/18 09:50 Oxygen Flow Rate (L/min) 2 Oxygen Delivery Method Room Air Weight: 199 lb 11.821 oz Body Mass Index (BMI) 35.4 Intake and Output for Last 24 Hours 09/26/18 09/27/18 09/28/18 23:59 23:59 23:59 Intake Total 930 / 930 Balance 930 / 930 Laboratory Tests Past 24 Hrs 09/27/18 09/27/1809/27/19 12:42 12:42 12:42 WBC 8.2 RBC 4.83 Hgb 14.7 Hct 47.1 H MCV 97.5 MCH 30.4 MCHC 31.2 L RDW 13.3 RDW Differential 47.6 H Plt Count 201 MPV 10.0 Immature Gran % (Auto) 0.200 Neut % (Auto) 50.7 Lymph % (Auto) 40.7 [place] % (Auto) 4.9 Eos % (Auto) 3.1 Baso % (Auto) 0.4 Absolute Neuts (auto) 4.1 Absolute Lymphs (auto) 3.32 Total Counted Not Reportable PT 12.2 INR 0.9 APTT 26.5 D-Dimer Quant (PE/DVT) 0.56 H* Sodium 139 Potassium 4.1 Chloride 103 Carbon Dioxide 30.0 Anion Gap 6 BUN 17 Creatinine 1.05 H Estim Creat Clear Calc 51.26 Est GFR (MDRD) Af Amer 70 Est GFR (MDRD) Non-Af 58 L BUN/Creatinine Ratio 16.2 Glucose 134 H Calcium 9.1 Total Bilirubin 0.40 AST 25 ALT 31 Alkaline Phosphatase 70 Troponin I < 0.015 Total Protein 7.4 Albumin 3.7 Globulin 3.7 Albumin/Globulin Ratio 1.0 Triglycerides Cholesterol LDL Cholesterol VLDL Cholesterol HDL Cholesterol Lipase 159 09/27/18 09/27/18 09/28/18 16:40 20:10 05:15 WBC RBC Hgb Hct MCV MCH MCHC RDW RDW Differential Plt Count MPV Immature Gran % (Auto) Neut % (Auto) Lymph % (Auto) [place] % (Auto) Eos % (Auto) Baso % (Auto) Absolute Neuts (auto) Absolute Lymphs (auto) Total Counted PT INR APTT D-Dimer Quant (PE/DVT) Sodium 142 Potassium 3.8 Chloride 105 Carbon Dioxide 30.0 Anion Gap 7 BUN 20 H Creatinine 0.96 Estim Creat Clear Calc 56.06 Est GFR (MDRD) Af Amer 78 Est GFR (MDRD) Non-Af 65 BUN/Creatinine Ratio 20.9 H Glucose 146 H Calcium 8.4 L Total Bilirubin AST ALT Alkaline Phosphatase Troponin I < 0.015 < 0.015 Total Protein Albumin Globulin Albumin/Globulin Ratio Triglycerides 454 H Cholesterol 214 H LDL Cholesterol TNP VLDL Cholesterol TNP HDL Cholesterol 28 L Lipase 09/28/18 09/28/18 05:15 05:15 WBC 8.1 RBC 4.45 Hgb 13.6 Hct 43.8 MCV 98.4 MCH 30.6 MCHC 31.1 L RDW 13.5 RDW Differential 48.3 H Plt Count 175 MPV 10.2 Immature Gran % (Auto) 0.200 Neut % (Auto) 35.9 L Lymph % (Auto) 54.3 H [place] % (Auto) 5.8 Eos % (Auto) 3.6 Baso % (Auto) 0.2 Absolute Neuts (auto) 2.9 Absolute Lymphs (auto) 4.40 Total Counted Not Reportable PT 11.9 INR 0.9 APTT 28.5 D-Dimer Quant (PE/DVT) Sodium Potassium Chloride Carbon Dioxide Anion Gap BUN Creatinine Estim Creat Clear Calc Est GFR (MDRD) Af Amer Est GFR (MDRD) Non-Af BUN/Creatinine Ratio Glucose Calcium Total Bilirubin AST ALT Alkaline Phosphatase Troponin I Total Protein Albumin Globulin Albumin/Globulin Ratio Triglycerides Cholesterol LDL Cholesterol VLDL Cholesterol HDL Cholesterol Lipase POC Glucose 09/28/18 09/28/18 09/27/18 09:51 06:59 23:04 POC Glucose 132 H 155 H 163 H 09/27/18 20:54 POC Glucose 141 H Discharge Diet: Carb Control Diet Discharge Activity: Return to Normal Activity Call your doctor if you observe: Shortness of breath, Dizziness, Fainting spells, Chest pain Home Medications: Medications to take at Discharge Gabapentin [Neurontin] 300 mg PO TID 12/28/17 Colchicine [Mitigare] 0.6 mg PO BID 09/27/18 Cyclobenzaprine [Flexeril] 10 mg PO TID PRN PRN 09/27/18 Doxycycline 100 mg PO BID 09/27/18 Febuxostat [Uloric] 40 mg PO DAILY 09/27/18 Hydrocodone/Acetaminophen [Hydrocodon-Acetaminophen 5-325] 1 each PO BID PRN 09/27/18 Metformin HCl [Glucophage] 500 mg PO BIDCM 09/27/18 Zolpidem Tartrate [Ambien] 5 mg PO QHS 09/27/18 Pantoprazole Sodium [Protonix] 40 mg PO DAILY #30 tablet 09/28/18 Following Prescrptions Were Given to Patient: Pantoprazole Sodium [Protonix] 40 mg PO DAILY #30 tablet Primary Care Physician: Jackie Astorga DO [Primary Care Provider] - Please follow up with your Primary Care Physician in: 1 Week Disposition: Home Minutes spent on discharge:: 35 Patient Condition:: Stable Medical Necessity - Tobacco Use Smoking Status: Current every day smoker Tobacco Use: Cigarettes Meaningful Use Info Meaningful Use Diagnoses (Choose all that apply): None applicable <Shirley Buenrostro E - Last Filed: 09/28/18 14:15> Discharge Date and Diagnosis - Secondary Discharge Diagnosis Chronic Problems RSD (reflex sympathetic dystrophy) (Chronic) History of kidney stones (Chronic) Recurrent UTI (Chronic) Tobacco abuse (Chronic) Obesity (Chronic) Type 2 diabetes mellitus (Chronic) Hospital Course and Treatment Imaging Results: 09/28/18 06:49 Stress Test Echo W/Contrast [ECHO] Routine Summary of Care Provided: Hospitalist note: Discharge summary above reviewed as well as physical examination and I agree with the above discharge plan. Patient was admitted for chest pain for evaluation. Her chest pain was atypical for CAD or ACS. Her cardiac workup was unremarkable. Her EKG revealed normal sinus rhythm with flattening of T waves: There was no acute ischemic changes. Troponin was negative x3. Chest x-ray showed no acute findings. D-dimer was elevated for which VQ lung scan performed and showed very low probability of pulmonary emboli. Routine blood work was unremarkable. Her vital signs were stable throughout admission. Acute coronary syndrome ruled out. She was found to have elevated triglycerides and total cholesterol, dietary modifications and diet control recommended. The chest pain could be due to GERD. He was discharged home in a stable medical condition, discharged on Protonix, continued on her chronic home medication without any changes, recommended that controlled for high cholesterol, follow-up with PCP in 1 week. This note was generated with directwor[employer] dictation software. It may contain incorrect words, spelling, and punctuation that were not noted in checking the note before signing. - Physical Exam Vital Signs Temp Pulse Resp BP Pulse Ox 97.7 F L 72 18 124/78 H 97 09/28/18 09:50 09/28/18 09:50 09/28/18 09:50 09/28/18 09:50 09/28/18 09:50 Oxygen Flow Rate (L/min) 2 Oxygen Delivery Method Room Air Weight: 199 lb 11.821 oz Body Mass Index (BMI) 35.4 Intake and Output for Last 24 Hours 09/26/18 09/27/18 09/28/18 23:59 23:59 23:59 Intake Total 930 / 930 Balance 930 / 930 Laboratory Tests Past 24 Hrs 09/27/18 09/27/18 09/28/18 16:40 20:10 05:15 WBC RBC Hgb Hct MCV MCH MCHC RDW RDW Differential Plt Count MPV Immature Gran % (Auto) Neut % (Auto) Lymph % (Auto) [place] % (Auto) Eos % (Auto) Baso % (Auto) Absolute Neuts (auto) Absolute Lymphs (auto) Total Counted PT INR APTT Sodium 142 Potassium 3.8 Chloride 105 Carbon Dioxide 30.0 Anion Gap 7 BUN 20 H Creatinine 0.96 Estim Creat Clear Calc 56.06 Est GFR (MDRD) Af Amer 78 Est GFR (MDRD) Non-Af 65 BUN/Creatinine Ratio 20.9 H Glucose 146 H Calcium 8.4 L Troponin I < 0.015 < 0.015 Triglycerides 454 H Cholesterol 214 H LDL Cholesterol TNP VLDL Cholesterol TNP HDL Cholesterol 28 L 09/28/18 09/28/18 05:15 05:15 WBC 8.1 RBC 4.45 Hgb 13.6 Hct 43.8 MCV 98.4 MCH 30.6 MCHC 31.1 L RDW 13.5 RDW Differential 48.3 H Plt Count 175 MPV 10.2 Immature Gran % (Auto) 0.200 Neut % (Auto) 35.9 L Lymph % (Auto) 54.3 H [place] % (Auto) 5.8 Eos % (Auto) 3.6 Baso % (Auto) 0.2 Absolute Neuts (auto) 2.9 Absolute Lymphs (auto) 4.40 Total Counted Not Reportable PT 11.9 INR 0.9 APTT 28.5 Sodium Potassium Chloride Carbon Dioxide Anion Gap BUN Creatinine Estim Creat Clear Calc Est GFR (MDRD) Af Amer Est GFR (MDRD) Non-Af BUN/Creatinine Ratio Glucose Calcium Troponin I Triglycerides Cholesterol LDL Cholesterol VLDL Cholesterol HDL Cholesterol POC Glucose 09/28/18 09/28/18 09/27/18 09:51 06:59 23:04 POC Glucose 132 H 155 H 163 H 09/27/18 20:54 POC Glucose 141 H Disposition: Home Minutes spent on discharge:: 25 Patient Condition:: Stable Meaningful Use Info Meaningful Use Diagnoses (Choose all that apply): None applicable Code Visit OBSV E&M: 72288 Observation care discharge
--- NOTE | 2018-09-28 10:50 | PHA.DC.MC ---
Pharmacy Service has performed discharge medication reconciliation and counseling for this patient. The patient's discharge medication list was reviewed for discrepancies and discrepancies were resolved. The patient was counseled on the following discharge medications and changes in medications for homegoing were reviewed. The Reason for Use, instructions for use, and potential side effects were reviewed for all new medications. The patient's questions regarding all of their medications were answered. 1. PANTOPRAZOLE 40MG PO DAILY The patient demonstrated some understanding but would benefit from further education and reinforcement. Home Medications Gabapentin [Neurontin] 300 mg PO TID 12/28/17 Colchicine [Mitigare] 0.6 mg PO BID 09/27/18 Cyclobenzaprine [Flexeril] 10 mg PO TID PRN PRN 09/27/18 Doxycycline 100 mg PO BID 09/27/18 Febuxostat [Uloric] 40 mg PO DAILY 09/27/18 Hydrocodone/Acetaminophen [Hydrocodon-Acetaminophen 5-325] 1 each PO BID PRN 09/27/18 Metformin HCl [Glucophage] 500 mg PO BIDCM 09/27/18 Zolpidem Tartrate [Ambien] 5 mg PO QHS 09/27/18 Pantoprazole Sodium [Protonix] 40 mg PO DAILY #30 tablet 09/28/18
== END 2018-09-28 10:18 | disposition home or self-care (01) ==
LOC: ED 14:03 → PCU 17:48
PROVIDERS: Admitting Provider Family Medicine; Emergency Provider Emergency Medicine; Visit Provider Hospitalist
DX: R07.89 Other chest pain (principal); R06.02 Shortness of breath; E78.00 Pure hypercholesterolemia, unspecified; Z82.49 Family history of ischemic heart disease and other diseases of the circulatory system; Z79.899 Other long term (current) drug therapy; Z79.84 Long term (current) use of oral hypoglycemic drugs; G90.50 Complex regional pain syndrome I, unspecified; E66.9 Obesity, unspecified; Z68.35 Body mass index [BMI] 35.0-35.9, adult; Z71.3 Dietary counseling and surveillance; E11.22 Type 2 diabetes mellitus with diabetic chronic kidney disease; N18.3 Chronic kidney disease, stage 3 (moderate); G89.4 Chronic pain syndrome; F17.210 Nicotine dependence, cigarettes, uncomplicated; M10.9 Gout, unspecified; R03.0 Elevated blood-pressure reading, without diagnosis of hypertension
CPT/HCPCS: 36415; 71046; 78598; 80048; 80053; 80061; 82962; 83690; 84484; 85025; 85379; 85610; 85730; 93005; 93017; 93350; 96360; 96361; 99218; 99283; A9540; A9567; J7030; J7040; Q9957; A4216; C8928; G0378

== ENCOUNTER 2018-10-28 14:30 | Outpatient (RCR) | payer MEDICAID, SELFPAY ==
[2018-09-27 18:25] VITALS: BMI 35.4
--- NOTE | 2018-10-12 10:45 | HP.PTEVAL ---
Patient's Visit Information DAVID GUEVARA is a 53 year old F referred to Physical Therapy by BALBINA ORLANDO with a diagnosis of Cervical Radiculopathy and shoulder pain. Date of Evaluation: 10/12/18 Physical Therapist: Francheska West DPT - Visit Plan Frequency: 2x /Week Duration: 4 Weeks Plan: Aquatics: focus on LE ROM and posture - Subjective Findings: Patient reports frozen shoulder on the left side with a pinched nerve. Left shoulder has been a problem since last February- has had x-ray of the shoulder. She only has neck pain when the shoulder pulls. Prefers to keep her shoulder out to the side. The pain is under the shoulder blade. Pain radiates to the elbow and into the anterior shoulder. Describes the pain as constant burning and stabbing. Feels like she can see lightening in her eyes sometimes. Does have N/T in the hands but reports that is from carpal tunnel on both sides. Worst: /10 had to take a muscle relaxer Agg: twisted, movement up or backwards or leaving it hanging for to long Eases: muscle relaxer, propping it up on a pillow Best: 01/17. Sleep: disturbed- can't lay on that shoulder. No recent images on her neck or shoulder. Tried Cortisone in the shoulder in June but that did not help. Right hand dominate. 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 PMHx: Chronic kidney stones, RSD, OA throughout her whole body, DM, Migraines, RSD, Meds: metformin, Urilic, gabapentin, hydrocodone, diaxolene for sinus infection. Neighbor helps her get dressed. - Objective Posture: FH, RS, Increased kyphosis- severe guarding of bilateral LE. Gait: no deviation noted- good arm swing and trunk rotation. Palpation: hypersensitive throughout shoulder- wincing and leaning away from light touch. Sensation: hypersensitive throughout upper extremity. ROM: Cervical: flexion: decreased by 50%, Extn: decreased by 25%, SB: decreased by 75% and Rotation: decreased by 75% severe pain with grimacing and reports of almost blacking out. Shoulder: unable to assess due to pain levels. Elbow: 40 degrees of flexion when asked due to pain but was able to perform full ROM later in session when asked to do finger dexterity. Supination: diminished by 50%, Pronation: full, Wrist Flexion/Extn: decreased by 50% with pain, Instant Potato Processor: unable due to pain. Finger Dexterity: unable to touch first finger to thumb but can touch all others. Severe reaction to all movements- unable to complete full evaluation but will continue to assess tolerance to movement in the pool. - Goals Goal 1:: Patient will be I with HEP and progression Goal Time Frame: 4-6 Weeks Goal 2:: Patient will maintain proper posture t/o tx session to demo increased scap s/s Goal Time Frame: 4-6 Weeks Goal 3:: Patient will demo full ROM in the left shoulder Goal Time Frame: 4-6 Weeks - Rehabilitation Potential Physical Therapy Diagnosis: Patient presents with hypomobility- she has decreased ROM, strength and muscular endurance leading to abnormal ADL's and increased pain. Rehabilitation Potential: Poor - Anticipated Interventions Patient/Client Instruction: Educate patient on: Benefits of Fitness Program Therapeutic Exercise to Include: Strength training, Endurance training, Balance training, Coordination, Agility training, Body mechanics, Postural training, Flexibilty training, In an aquatic setting, Passive ROM, Active ROM, Scapular Strength/Stabilization For the Purpose of:: To increase ROM, To improve muscle performance and motor function Thank you for the opportunity to evaluate your patient. For Medicare and Medicare HMO plans, please review the plan of care and approve it. It will need to be FAXED BACK to us at [phone] for Medicare purposes. For Medicare only, by signing this I certify the plan of care. Please let me know if there are questions or concerns regarding this plan of care. Physician Signature: Date:
--- NOTE | 2018-11-02 13:35 | HP.PT.NRP ---
HP - Discharge Summary (1) - Patient Information DAVID GUEVARA was seen in my office for initial evaluation on 10/12/18. The following Plan of Care was established for this patient: Initial Frequency: 2x /Week Initial Duration: 4 Weeks - Anticipated Interventions Patient/Client Instruction: Educate patient on: Benefits of Fitness Program Therapeutic Exercise to Include: Strength training, Endurance training, Balance training, Coordination, Agility training, Body mechanics, Postural training, Flexibilty training, In an aquatic setting, Passive ROM, Active ROM, Scapular Strength/Stabilization For the Purpose of:: To increase ROM, To improve muscle performance and motor function This patient was last seen in our office . Pertinent comments regarding their Physical therapy will appear below: Patient is asking to be d/c from PT at this time- it its causing to much pain and she plans to have surgical intervention At this point I will be discontinuing this patient from physical therapy. I would be happy to see this patient again in the future if found appropriate by the physician. Thank you! Francheska West DPT
== END 2018-10-28 19:00 | disposition home or self-care (01) ==
LOC: PT 14:30
DX: M54.12 Radiculopathy, cervical region (principal)
CPT/HCPCS: 97113; 97162

== ENCOUNTER → 2019-04-13 | Outpatient (CLI) | payer MEDICAID, SELFPAY ==
[2018-09-27 18:25] VITALS: BMI 35.4
--- NOTE | 2019-04-13 14:25 | CT_ITS ---
STUDY: CT MAXILLOFACIAL SINUSES REASON FOR EXAM: Female, 53 years old. Right-sided pain and pressure RADIATION DOSAGE (If Supplied By Facility): CTDIvol = ( 33.45 ) mGy, DLP = ( 1460.74 ) mGycm TECHNIQUE: The patient was scanned in a multi detector CT scanner. High resolution axial imaging was performed without the administration of intravenous contrast material. Sagittal and coronal images were reconstructed. Individualized dose optimization techniques were used for this CT. COMPARISON: None. FINDINGS: FRONTAL SINUSES: Normal aeration, without mucosal inflammatory disease. ETHMOIDAL SINUSES: Normal aeration, with minimal mucosal inflammatory disease. MAXILLARY SINUSES: Normal aeration, without mucosal inflammatory disease. SPHENOIDAL SINUSES: Normal aeration, without mucosal inflammatory disease. There is patency of the bilateral maxillary infundibuli with normal uncinate processes, ethmoid bullae, and hiatus semilunaris. Normal bilateral middle turbinates. Normal bilateral inferior turbinates. Normal midline nasal septum. There is patency of the bilateral nasal airways. The visualized osseous structures are normal. The visualized bilateral orbital contents are normal. CT/Sinus/Facial Bone IMPRESSION: Minimal left ethmoid sinusitis Electronically Signed: Goran Arevalo MD at 16:46 EDT , Service support ,
== END | disposition home or self-care (01) ==
LOC: CT 14:09
PROVIDERS: Referring Provider Otolaryngology; Visit Provider Otolaryngology
DX: J32.9 Chronic sinusitis, unspecified (principal)
CPT/HCPCS: 70486

== ENCOUNTER → 2019-04-21 09:18 | Outpatient (CLI) | payer MEDICAID, SELFPAY ==
[2018-09-27 18:25] VITALS: BMI 35.4
--- NOTE | 2019-04-21 09:21 | US_ITS ---
STUDY: ABDOMINAL ULTRASOUND REASON FOR EXAM: Female, 53 years old. Abdominal pain TECHNIQUE: Transabdominal ultrasound was performed with real-time and static saavedra scale imaging. TECHNICAL QUALITY: Limited. Examination limited due to obesity. COMPARISON: None. FINDINGS: Liver: The liver measures 16.8 cm. There is increased echogenicity consistent with fatty infiltration. The bile ducts are within normal limits. There is hepatic color flow. The direction of portal flow is hepatopetal. There is no demonstrated mass lesion. Gallbladder: Normal distended gallbladder. The gallbladder wall measures 2.9 mm. There is a positive sonographic Downing's sign. There is no pericholecystic fluid. There are no gallstones. Common Bile Duct (C.B.D.): The common bile duct measures 7 mm. Pancreas: Normal size of the head, body and tail of the pancreas. There is normal echogenicity of the pancreas. There is no demonstrated pancreatic mass or cyst. Spleen: Normal size of the spleen. The spleen measures 9.8 x 4.1 x 4.7 cm. Right Kidney: There is hypertrophy of the right kidney. The right kidney measures 13.0 x 5.8 x 5.6 cm. Normal renal cortex. The right cortex measures 1.1 cm. There is no demonstrated renal mass or cyst. There is no right hydronephrosis. There are diffuse tiny echogenic foci of the renal pelvis which may represent tiny calculi or vascular calcifications. Left Kidney: Normal size of the left kidney. The left kidney measures 10.3 x 4.8 x 4.4 cm. There is thinning of the renal cortex. The left cortex measures 0.6 cm. There are multiple left renal cysts. The largest 2 were measured, one located in the peripelvic region measuring 1.6 x 1.3 x 1.5 cm and second in the inferior pole measuring 4.1 x 3.2 x 3.2 cm. There is a nonobstructing calculus measuring 3 x 4 x 3 mm. There is no left hydronephrosis. The left kidney is echogenic which may represent medical renal disease. Aorta: The abdominal aorta is normal in caliber and contour, and measures 1.9 x 2.3 cm in diameter proximally, 1.5 x 1.2 cm in the mid abdominal region, and 1.4 x 1.4 cm in diameter distally. I.V.C.: The IVC is patent. There is no ascites. US/Abdomen Complete IMPRESSION: 1. Limited study secondary to patient obesity. 2. A positive sonographic Downing sign was elicited as per retail service technician. 3. Hypertrophic right kidney. 4. Bilateral nonobstructing nephrolithiasis. Multiple left renal cysts were noted, the largest measuring 4.1 x 3.2 x 3.2 cm. The left kidney is echogenic which may represent medical renal disease. Electronically Signed: Ellis Valentin MD at 23:55 EDT , Service support ,
== END ==
DX: R10.9 Unspecified abdominal pain (principal)
CPT/HCPCS: 76700

== ENCOUNTER → 2019-05-04 10:16 | Outpatient (CLI) | payer MEDICAID, SELFPAY ==
[2018-09-27 18:25] VITALS: BMI 35.4
[2019-05-04 11:58] LABS: AST(SGOT) 34 U/L (15-37); Alanine Aminotransfer ALT/SGPT 40 U/L (13-56); Albumin, Serum 3.7 g/dL (3.2-5.0); Alkaline Phosphatase 77 U/L (45-117); Bilirubin, Direct 0.14 mg/dL (0.00-0.30); Globulin 4.1 g/dL (2.2-4.2); Protein, Total 7.8 g/dL (6.4-8.2)
== END ==
DX: R10.9 Unspecified abdominal pain (principal); R94.5 Abnormal results of liver function studies
CPT/HCPCS: 36415; 80076

== ENCOUNTER 2019-06-02 08:13 | Emergency (ER) | payer MEDICAID, SELFPAY ==
[2018-09-27 18:25] VITALS: BMI 35.4
[2019-06-02 08:16] VITALS: BP 156/78; PULSE 83; RESP 16; TEMP 36.6; O2SAT 99; BMI 35.1
[2019-06-02 08:58] VITALS: RESP 18
--- NOTE | 2019-06-02 09:16 | ED.DCSUM_ITS ---
History of Present Illness Chief Complaint: Dizziness Informant: Patient Narrative: Patient starts by saying she was diagnosed with H pylori in her stomach and she has been having pain for 3 or 4 months, her specialist cannot give her antibiotics to treat this that she is not allergic to, and she wants us to solve it. In addition, she is having multiple other complaints. She states that because of the ulcer she has been having worsening pain and nausea with vomiting, trouble keeping things down as a result. No one has prescribed her antinausea medicine. She states she has had anaphylactic responses to several antibiotics, and rashes to others, she states they gave her Flagyl but told her not to start taking it until she gets the other medicine, she does not know what that is but then states that the pharmacist will not let her have some of these medications because of her reactions, but she does not know what any of these medications are, even the ones she reacts to except for sulfa which gives her a rash. She brings a paper with a gastroenterology specialist practice in [place], with the diagnosis of H. pylori. She confirms that they did endoscopy to diagnose this. She is not taking any other medications even [id number]. She states her throat is really sore and burning that is worse every time she vomits. Her upper abdomen has been hurting for months and feels a little worse in the last few days and she had some elevated liver enzymes a week or 2 ago. She has a history of some type of hypercalciuria according to the patient, lupus, chronic regional pain syndrome that she sees pain management for, she states she is less worried about the pain and more worried about the fact she cannot keep anything down. She states she was referred to the ER for all of this, upon calling the doctor's office today. She has another appointment with GI in 1 week. - Past Medical History (1) CRPS (complex regional pain syndrome) Status: Chronic (2) Lupus (systemic lupus erythematosus) Status: Chronic (3) Rheumatoid arthritis Status: Chronic (4) History of kidney stones Status: Chronic (5) RSD (reflex sympathetic dystrophy) Status: Chronic (6) Recurrent UTI Status: Chronic (7) Type 2 diabetes mellitus Status: Chronic Past Medical History - Allergies and Home Meds Allergies/Adverse Reactions: Allergies acetaminophen [From Tylenol] Allergy (Verified 06/02/19 08:15) Swollen lymph glands ibuprofen Allergy (Verified 06/02/19 08:15) Swollen lymph glands iodine Allergy (Verified 06/02/19 08:15) Swelling latex Allergy (Verified 06/02/19 08:15) Swelling Penicillins Allergy (Verified 06/02/19 08:15) Swelling shellfish derived Allergy (Verified 06/02/19 08:15) Swelling Sulfa (Sulfonamide Antibiotics) Allergy (Verified 06/02/19 08:15) Swelling 'MYCIN' Adverse Reaction (Uncoded 06/02/19 08:15) Hives ID BAND AND HARD PLASTIC Adverse Reaction (Uncoded 06/02/19 08:15) Rash Primary Care Physician: Jackie Astorga DO [Primary Care Provider] - As soon as possible (and your GI doctor) Surgical History: - - Kidney stone removal/left ureteral stent placement, hysterectomy/tubal ligation Smoking Status: Current every day smoker Drugs: None - Family History Maternal Family History: Reports: Heart Disease, - - migraines Paternal Family History: Reports: Heart Disease Sibling Family History: Reports: Heart Disease Review of Systems General: Reports: Malaise, - - lightheaded w/ standing; no syncope/presyncope. Denies: Chills, Fever Eyes: Denies: Visual changes - bilaterally, Diplopia ENT: Reports: Sore throat. Denies: Bilateral ear pain, Rhinorrhea Cardiovascular: Denies: Chest pain, Palpitations Respiratory: Denies: Dyspnea, Cough, Dyspnea on exertion Gastrointestinal: Reports: Abdominal pain, Nausea, Vomiting, - - no hematemesis. Denies: Diarrhea, Melena, Hematochezia Genitourinary: Denies: Dysuria, Hematuria Musculoskeletal: Reports: Arthralgias, Neck pain, Back pain - chronic, Extremity Pain - chronic. Denies: Swelling Physical Exam Vital Signs/Narrative: Vital Signs Temp Pulse Resp BP Pulse Ox 06/02/19 08:58 18 06/02/19 08:16 97.9 F 83 16 156/78 H 99 Inital Vital Signs reviewed: Yes General: Well nourished, Well developed, No Acute Distress Head: Normocephalic, Atraumatic Eyes: Perrl, EOMI. Negative for: Scleral icterus ENT: Moist mucous membranes, No rhinorrhea Neck: Supple, Nontender Cardiovascular: Regular rate, Regular rhythm, No murmurs Respiratory: No distress, CTA bilaterally, Chest nontender Abdomen: Soft, Nondistended, Normal bowel sounds, No masses, Tender - across upper abd. Negative for: Guarding, Rebound tenderness Back: Nontender, Normal Inspection. Negative for: CVA tenderness Extremities: No edema. Negative for: Calf Tenderness Skin: Normal color, No rash, No Trauma Neurological: Alert, Oriented x3, Cranial nerves II-XII grossly intact, Normal Strength, Normal Sensation, Normal Gait Psychological: Normal affect, Normal Mood Diagnostic/Tx/Re-eval Laboratory Tests 06/02/19 06/02/19 Range/Units 09:22 09:22 WBC 10.4 (4.4-11.0) K/mm3 RBC 4.80 (4.2-5.4) M/mm3 Hgb 14.8 (12.0-15.0) g/dL Hct 46.7 (37-47) % MCV 97.3 (81-99) fL MCH 30.8 (27.0-32.0) pg MCHC 31.7 L (32-36) g/dL RDW Std Deviation 46.9 H (35.1-43.9) fl RDW Coeff of Didi 13.0 (11.6-14.6) % Plt Count 205 (150-450) K/mm3 MPV 10.0 (6.2-12.0) fl Immature Gran % (Auto) 0.200 (0.0-0.9) % Neut % (Auto) 56.0 (47-70) % Lymph % (Auto) 35.0 (19-41) % [place] % (Auto) 5.8 (0-10) % Eos % (Auto) 2.2 (0-5) % Baso % (Auto) 0.8 (0-1) % Absolute Neuts (auto) 5.8 (2.0-7.7) X10^3/uL Absolute Lymphs (auto) 3.63 (0.83-4.51) X10^3/uL Nucleated RBC % 0 (0-5) % Sodium 138 (136-145) mmol/L Potassium 4.5 (3.5-5.1) mmol/L Chloride 104 (98-107) mmol/L Carbon Dioxide 28.0 (21.0-32.0) mmol/L Anion Gap 6 (5-15) BUN 13 (7-18) mg/dL Creatinine 0.88 (0.55-1.02) mg/dL Estim Creat Clear Calc 60.46 ml/min Est GFR (MDRD) Af Amer 86 (>60) mL/min Est GFR (MDRD) Non-Af 71 (>60) mL/min BUN/Creatinine Ratio 14.7 (10-20) RATIO Glucose 120 H (74-106) mg/dL Calcium 9.5 (8.5-10.1) mg/dL Total Bilirubin 0.50 (0.20-1.00) mg/dL AST 36 (15-37) U/L ALT 50 (13-56) U/L Alkaline Phosphatase 81 (45-117) U/L Total Protein 7.8 (6.4-8.2) g/dL Albumin 4.0 (3.2-5.0) g/dL Globulin 3.8 (2.2-4.2) g/dL Albumin/Globulin Ratio 1.1 (0.9-2.4) RATIO Lipase 441 H (73-393) U/L - Medical Decision Making Patient does not examine like a perforated ulcer. She is not jaundiced. As I discussed with her I do not have the solution for her issue with antibiotics, she certainly needs to call her orange grower to have them sort that out so that she gets the appropriate treatment for H. pylori. As I advised her I am happy to check electrolytes, rule out any imbalances such as hypokalemia, and treat any possible dehydration that she may have, as this may be causing her to feel lightheaded. I can also get her some medication to try to get her feeling better, such as a GI cocktail for her throat and stomach and Zofran. All of that is ordered and she is agreeable to this plan and understanding of the difficulty with treating her H. pylori here out of the emergency department given her reactions and the fact that I do not know what she reacts to with anaphylaxis. Labs as above are noted, liver enzymes are normal but lipase is slightly nonspecifically elevated. She had an ultrasound a little over 1 month ago of her abdomen that showed no signs of any gallstones or gallbladder pathology. She has no acute leukocytosis at this time. If she was diagnosed with H. pylori and has stomach ulcers, that certainly would explain the symptoms she is having right now. There was no electrolyte disorder or objective signs of dehydration although she had symptoms of the latter. She was given IV fluids, Zofran, GI cocktail. She felt much better. She was prescribed Zofran and advised to follow-up with her orange grower as soon as possible to discern the best medication regimen for her. I advised that she can use Mylanta and/or bismuth subsalicylate at home as needed, oftentimes the latter is part of the regimen anyway. ED Disposition - Plan for ED Patient: Disposition: Home or Assisted Living Diagnosis: H. pylori infection, Upper abdominal pain, Mild dehydration Instructions: Understanding H. pylori and Ulcers, DIET, Vomiting or Diarrhea [6yr-Adult] Prescriptions: Ondansetron [Zofran] 8 mg PO Q8H PRN PRN #16 tab PRN Reason: Nausea Prescription Printed Referrals: Jackie Astorga, [Primary Care Provider] - As soon as possible (and your GI doctor)
[2019-06-02 09:37] LABS: Absolute Lymphocyte Count 3.63 X10^3/uL (0.83-4.51); Absolute Neutrophil Count 5.8 X10^3/uL (2.0-7.7); Basophil# 0.08 X10^3/uL; Basophil% 0.8 % (0-1); Eosinophil# 0.23 X10^3/uL; Eosinophils% 2.2 % (0-5); Hematocrit 46.7 % (37-47); Hemoglobin 14.8 g/dL (12.0-15.0); Lymphocyte # 3.63 X10^3/ul (4.0); Mean Corp Hgb Conc 31.7 g/dL (32-36); Mean Corpuscular Hgb 30.8 pg (27.0-32.0); Mean Corpuscular Volume 97.3 fL (81-99); Monocyte% 5.8 % (0-10); NRBC Flagged by Analyzer 0 % (0-5); Neutrophil # 5.81 X10^3/uL (2.7-7.7); Platelet Count 205 K/mm3 (150-450); RBC Distribution Width SD 46.9 fl (35.1-43.9); White Blood Count 10.4 K/mm3 (4.4-11.0)
[2019-06-02 09:50] LABS: ALB/GLOB Ratio 1.1 RATIO (0.9-2.4); AST(SGOT) 36 U/L (15-37); Alanine Aminotransfer ALT/SGPT 50 U/L (13-56); Alkaline Phosphatase 81 U/L (45-117); Anion Gap 6 (5-15); BUN 13 mg/dL (7-18); BUN/Creat Ratio 14.7 RATIO (10-20); Calcium,Total 9.5 mg/dL (8.5-10.1); Chloride 104 mmol/L (98-107); Creatinine, Serum 0.88 mg/dL (0.55-1.02); EST Glomerular Filtration Rate 71 mL/min (>60); Est Glom Filt Rate - Afr Amer 86 mL/min (>60); Estimated Creatinine Clearance 60.46 ml/min; Globulin 3.8 g/dL (2.2-4.2); Glucose 120 mg/dL (74-106); Lipase 441 U/L (73-393); Potassium 4.5 mmol/L (3.5-5.1); Protein, Total 7.8 g/dL (6.4-8.2); Sodium Level 138 mmol/L (136-145)
[2019-06-02] MEDS: Mag Hydrox/Al Hydrox/Simeth 30 ML UDC PO (09:57)
[2019-06-02] MEDS: Ondansetron 4 MG/2 ML Vial IV (09:57)
[2019-06-02] MEDS: 0.9% Normal Saline 1,000 ML 999 ML IV (09:57)
== END 2019-06-02 11:38 | disposition home or self-care (01) ==
PROVIDERS: Emergency Provider Emergency Medicine
DX: A04.8 Other specified bacterial intestinal infections (principal); R10.10 Upper abdominal pain, unspecified; E86.0 Dehydration; J02.9 Acute pharyngitis, unspecified; M32.9 Systemic lupus erythematosus, unspecified; M06.9 Rheumatoid arthritis, unspecified; G90.50 Complex regional pain syndrome I, unspecified; E11.9 Type 2 diabetes mellitus without complications; Z87.442 Personal history of urinary calculi; Z87.440 Personal history of urinary (tract) infections; Z79.84 Long term (current) use of oral hypoglycemic drugs; Z79.899 Other long term (current) drug therapy; F17.200 Nicotine dependence, unspecified, uncomplicated
CPT/HCPCS: 80053; 83690; 85025; 96361; 96374; 99283; J7030; A4216; J2405

== ENCOUNTER → 2019-09-05 13:37 | Outpatient (CLI) | payer MEDICAID, SELFPAY ==
--- NOTE | 2019-09-05 | UV_PTH ---
PATIENT: DAVID GUEVARA LOC: [facility] U#:[id number] AGE/SX: 60/F ROOM: RE09/05/[address]: Dr. Indra Su MD : 1965 BED: DIS: SPEC #: [id number] RECD: 09/05/19 14:55 STATUS: RACHEL MO #: [id number] ERIK: 09/05/19 00:[address]: Indra Su DEPT: SURGICAL PATHOLOGY RECD BY: Xu Armas ENTERED: 09/05/19 14:56 SP TYPE: UVULA OTHR DR: Dr. Jackie Astorga, Tissues: Uvula palatina Procedures: Surgery Specimen Level IV Comments: @ Specimen number changed from [id number] to [id number] @ on 09/05/19 at 1515 by NADIRA. 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 KENA:jarred 09/06/19 MICROSCOPIC DESCRIPTION Slides are reviewed. GROSS DESCRIPTION Received is one container labeled with the patient's name and not further designated. The specimen consists of a piece of [place] mucosal tissue measuring 0.5 x 0.4 x 0.1 cm. The specimen is totally submitted in one cassette. / KENA:jarred 09/05/19 TC:1 CPT: 49859
== END ==
LOC: LABSPEC 13:45
PROVIDERS: Referring Provider Otolaryngology; Visit Provider Otolaryngology
DX: D10.39 Benign neoplasm of other parts of mouth (principal)
CPT/HCPCS: 88304; 88305

== ENCOUNTER 2020-01-09 11:16 | Emergency (ER) | payer MEDICAID, SELFPAY ==
[2020-01-09 11:17] VITALS: BP 145/77; PULSE 94; RESP 18; TEMP 36.5; O2SAT 95; BMI 34.2
--- NOTE | 2020-01-09 11:19 | ED.RN ---
pt refusoing to wear wrist band. states she is allergic to it and the adhesive.
--- NOTE | 2020-01-09 11:43 | ED.VIS.URI ---
History of Present Illness Chief Complaint: Sore Throat Narrative: Patient presenting for evaluation secondary to ear pain and sore throat. Patient reports that over the course about the last 3 days she has been dealing with right ear pain and a sore throat. She does state that this is associated with a mild nonproductive cough. She denies any fevers. She does report that she is nauseous but has not vomited. Patient states that she has had this in the past that required antibiotic treatment. She really has not tried any ogwp-wjl-[id number] remedies for this. Patient denies any decreased hearing. Patient reports that she has multiple medication allergies, and past she has been given doxycycline for this and it has seemed to work. Review of systems otherwise negative. Pain is moderate worse with coughing. Past Medical History - Allergies and Home Meds Allergies/Adverse Reactions: Allergies acetaminophen [From Tylenol] Allergy (Verified 06/02/19 08:15) Swollen lymph glands ibuprofen Allergy (Verified 06/02/19 08:15) Swollen lymph glands iodine Allergy (Verified 06/02/19 08:15) Swelling latex Allergy (Verified 06/02/19 08:15) Swelling Penicillins Allergy (Verified 06/02/19 08:15) Swelling shellfish derived Allergy (Verified 06/02/19 08:15) Swelling Sulfa (Sulfonamide Antibiotics) Allergy (Verified 06/02/19 08:15) Swelling 'MYCIN' Adverse Reaction (Uncoded 06/02/19 08:15) Hives ID BAND AND HARD PLASTIC Adverse Reaction (Uncoded 06/02/19 08:15) Rash Primary Care Physician: Jackie Astorga, [Primary Care Provider] - Prior records reviewed: Yes Past Medical History: - - Diabetes, complex regional pain syndrome Surgical History: - - Kidney stone removal/left ureteral stent placement, hysterectomy/tubal ligation Smoking Status: Current every day smoker Alcohol: None Drugs: None - Family History Maternal Family History: Reports: Heart Disease, - - migraines Paternal Family History: Reports: Heart Disease Sibling Family History: Reports: Heart Disease Review of Systems All systems negative except as indicated General: Denies: Fever Eyes: Denies: Visual changes - bilaterally, Diplopia ENT: Reports: Right ear pain, Sore throat Cardiovascular: Denies: Chest pain, Palpitations Respiratory: Reports: Cough Gastrointestinal: Reports: Nausea Genitourinary: Denies: Dysuria, Hematuria, Frequency Musculoskeletal: Denies: Back pain, Extremity Pain Skin: Denies: Rash, Wounds Neurological: Denies: Headache, Weakness, Numbness Physical Exam Vital Signs/Narrative: Vital Signs Temp Pulse Resp BP Pulse Ox 01/09/20 11:17 97.7 F L 94 18 145/77 H 95 Inital Vital Signs reviewed: Yes General: Well nourished, Well developed Head: Normocephalic, Atraumatic. Negative for: Right Tenderness, Left Tenderness Eyes: Perrl, EOMI Ears: Normal external canal, - - Normal external right ear canal with no evidence of [place] or malignant otitis externa. No tenderness of the mastoid. Right tympanic membrane is retracted and erythematous. Left TM and ear exam is normal. Nose: Normal Inspection, No Rhinorrhea Mouth/Throat: Normal Inspection, No Posterior Erythema Tonsils: Negative for: Right Tonsilar Erythema, Left Tonsilar Erythema Neck: Supple, Nontender Cardiovascular: Regular rate, Regular rhythm, No murmurs Respiratory: No distress, CTA bilaterally, Chest nontender Abdomen: Soft, Nontender, Nondistended, Normal bowel sounds Back: Nontender, Normal Inspection Extremities: Nontender, No edema Skin: Normal color, No rash Neurological: Alert, Oriented x3, Cranial nerves II-XII grossly intact, Normal Strength, Normal Sensation Psychological: Normal affect Diagnostic/Tx/Re-eval - Medical Decision Making Patient presented with ear pain and throat pain. Throat exam does not demonstrate any evidence that the patient would have strep pharyngitis. Patient does seem to have the starts of an ear infection. She has multiple medication allergies and reports that doxycycline is worked for her in the past. She will be placed on a course of this. She is recommended other conservative management measures such as saline rinses. ED Disposition - Plan for ED Patient: Disposition: Home or Assisted Living Diagnosis: Otitis media Instructions: ED Otitis Media Antibiotic Treatment Adult Prescriptions: Doxycycline 100 mg PO BID #20 cap Prescription Printed Referrals: Jackie Astorga DO [Primary Care Provider] - 3-5 Days
--- NOTE | 2020-01-09 12:58 | NURSING ---
103 KITTOE ATRAIL FIB WITH RVR, NEAR SYNCOPE
[2020-01-09 13:14] VITALS: PULSE 90; RESP 17; O2SAT 94
== END 2020-01-09 13:17 | disposition home or self-care (01) ==
LOC: ED 12:05
PROVIDERS: Emergency Provider Emergency Medicine
DX: H66.91 Otitis media, unspecified, right ear (principal); E11.9 Type 2 diabetes mellitus without complications; Z79.84 Long term (current) use of oral hypoglycemic drugs; F17.200 Nicotine dependence, unspecified, uncomplicated
CPT/HCPCS: 99282

== ENCOUNTER → 2020-01-25 07:47 | Outpatient (CLI) | payer MEDICAID, SELFPAY ==
[2020-01-09 11:17] VITALS: BMI 34.2
--- NOTE | 2020-01-25 08:05 | CT_ITS ---
STUDY: CT SOFT TISSUE NECK WITH CONTRAST REASON FOR EXAM: Female, 54 years old. NECK PAIN, right sided ear infections RADIATION DOSAGE (If Supplied By Facility): CTDIvol = ( 17.72 ) mGy, DLP = ( 482.53 ) mGycm TECHNIQUE: The patient was scanned in a multi-detector CT scanner. High resolution transaxial imaging was performed following intravenous administration of IV 75mL Isovue-300. Sagittal and coronal images were reconstructed. Individualized dose optimization techniques were used for this CT. COMPARISON: None. FINDINGS: Normal bilateral parotid glands. Normal bilateral lead presser spaces. Normal bilateral parapharyngeal spaces. Normal bilateral carotid spaces. Normal bilateral sublingual and submandibular glands and spaces. Normal visualized nasopharynx. Normal retropharyngeal space. Normal perivertebral space. Normal visualized bilateral faucial tonsils. The visualized tongue, tongue base and oropharynx are normal. There are minimally enlarged lymph nodes of the neck, with preservation of normal jennifer architecture, consistent with a reactive lymph hyperplasia. There is no demonstrated solid or cystic mass lesion. There is no abnormal contrast enhancement. Normal epiglottis, bilateral vallecula and hypopharynx. The pre-epiglottic and paraglottic adipose spaces are normal. Normal visualized bilateral piriform sinuses, aryepiglottic folds, vocal cords, and arytenoid-cricoid articulations. Normal subglottic trachea. Normal bilateral lobes of the thyroid gland. Normal visualized pulmonary apices. Partial opacification of the left sphenoid sinus. Partial opacification of the ethmoid sinuses as well. There is mild degenerative changes of the cervical spine. CT/Soft Tissue Neck WITH Contrast IMPRESSION: Partial opacification of the ethmoid sinuses as well as the left sphenoid sinus. Electronically Signed: Alo Slater, at 9:02 EDT , Service support ,
== END ==
PROVIDERS: Referring Provider Otolaryngology; Visit Provider Otolaryngology
DX: M54.2 Cervicalgia (principal)
CPT/HCPCS: 70491; Q9967

== ENCOUNTER 2020-11-14 13:32 | Emergency (ER) | payer MEDICAID, SELFPAY ==
[2020-11-14 13:32] VITALS: BP 142/76; PULSE 95; RESP 16; TEMP 36.1; O2SAT 96; BMI 34.9
--- NOTE | 2020-11-14 13:36 | RAD_ITS ---
STUDY: X-RAY - LEFT KNEE REASON FOR EXAM: Female, 55 years old. PAIN TECHNIQUE: 4 view(s) of the knee. COMPARISON: None. FINDINGS: Normal visualized distal femur. There is an exophytic bony growth at the medial aspect of the proximal metaphysis of the fibula suggesting an osteochondroma measures approximately 3.4 cm. Normal proximal tibiofibular articulation. There is mild degenerative arthrosis of the medial femorotibial compartment. Normal lateral femorotibial compartment. There is mild degenerative arthrosis of the patellofemoral articulation. There is a large volume joint effusion. The soft tissue structures are unremarkable. RAD/Knee 4 or More Views IMPRESSION: Effusion, as described above. There is an exophytic bony growth at the medial aspect of the proximal metaphysis of the fibula suggesting an osteochondroma measures approximately 3.4 cm. Electronically Signed: Claribel Cummins MD at 14:21 EDT Tel , Service support ,
[2020-11-14] MEDS: morphine 8 MG/ML Syringe IM (14:33)
[2020-11-14] MEDS: Ondansetron ODT 4 MG Tablet PO (14:33)
--- NOTE | 2020-11-14 14:44 | ED.DCSUM_ITS ---
- ER Visit Summary Date of Service: 11/14/20 Chief Complaint: Left knee pain History of Present Illness: The patient is a 55 F who sees Jackie Astorga. She reports that 3 days ago she stood up from the commode and had a pop in her left knee and she is had severe stabbing pain since that time. She did not fall. States that she has pain is 10 of 10 severity. Is worsened by movement or walking. She is taken hydrocodone without relief. She is never had problems with this knee before. Review of systems: General: No fever, chills, cold sweats. Cardiovascular: No chest pain, palpitations. Respiratory: No cough, shortness of breath, dyspnea on exertion. Gastrointestinal: No abdominal pain, nausea, vomiting, diarrhea, melena, or hematochezia. Genitourinary: No dysuria, frequency, hematuria. Skin: No rash. Neuro: No headache, numbness, weakness. Physical Examination: Vitals: Stable. Afebrile. General: Well-nourished and well-developed. Head: Normocephalic atraumatic. Neck: Supple, no lymphadenopathy. No JVD. Nontender. Cardiovascular: Regular rate and rhythm. No murmurs. Respiratory: No respiratory distress. Clear to auscultation bilaterally. Abdominal: Soft, nontender, nondistended, normal bowel sounds. No guarding, rebound, or peritoneal signs. Back: Nontender. Extremities: Left knee: Moderate diffuse tenderness to palpation. There is a moderate joint effusion. There is no overlying erythema or warmth to suggest a septic joint. She has minimal pain with short arc movements. She has pain, but no ligamentous instability with anterior/posterior drawer and medial/lateral stress. She is neurovascular tact distal to this. Skin: Normal color, no rash. Neurologic: Alert and oriented ?3. Cranial nerves II through XII are intact. Normal strength and sensation. Psych: Normal affect. Test Results: Clinical Impression(s) from Imaging Studies Knee X-Ray 11/14/20 13:36 IMPRESSION: Effusion, as described above. There is an exophytic bony growth at the medial aspect of the proximal metaphysis of the fibula suggesting an osteochondroma measures approximately 3.4 cm. Electronically Signed: Claribel Cummins MD at 14:21 EDT Tel , Service support , Emergency Department Course and Treatment: Patient was treated with morphine IM and Zofran p.o. She is resting more comfortably. Treatment Plan: Had a prolonged scratch the patient that I suspect that she may have torn her meniscus. She already has crutches. She is on pain management and does not want more pain medications. She is instructed to ice the knee. Follow-up Dr. Macias in 1 week if not improving. Return to the emergency department for any worsening symptoms. Disposition: To home in improved and stable condition. Impression: 1. Left knee pain, acute. This note was generated with [employer] dictation software. It may contain incorrect words, spelling, and punctuation that were not noted in review of the chart prior to signing ED Disposition - Plan for ED Patient: Disposition: Home or Assisted Living Instructions: ED Knee Pain of Uncertain Cause Referrals: Rosaura Macias DO [STAFF PHYSICIAN] - 1 Week
== END 2020-11-14 14:58 | disposition home or self-care (01) ==
LOC: ED 14:35
PROVIDERS: Emergency Provider Emergency Medicine
DX: M25.562 Pain in left knee (principal); M25.462 Effusion, left knee; E11.9 Type 2 diabetes mellitus without complications; I10 Essential (primary) hypertension; E78.00 Pure hypercholesterolemia, unspecified; Z79.84 Long term (current) use of oral hypoglycemic drugs; Z79.899 Other long term (current) drug therapy; F17.200 Nicotine dependence, unspecified, uncomplicated
CPT/HCPCS: 73564; 96372; 99283

== ENCOUNTER 2020-12-05 10:56 | Emergency (ER) | payer MEDICAID, SELFPAY ==
[2020-12-05 10:57] VITALS: BP 100/64; PULSE 84; RESP 16; TEMP 36.3; O2SAT 97; BMI 34.9
--- NOTE | 2020-12-05 11:57 | EX.ED.DYSGE1 ---
HPI History of Present Illness Chief Complaint: Lower Extremity Injury Detail of Chief Complaint: Right foot and hip pain Informant: patient Onset/Context/Timing Onset: Yesterday Context: Gradual Onset Timing: Continuous Quality: Shaking and jumping Location: Right hip and right foot Current Severity: Severe Maximum Severity: Severe Worsened by: Weightbearing Relieved by: Nothing Narrative Narrative: Patient presents with right hip and right foot pain that has been getting worse over the past 1 to 2 days. Patient denies any trauma or injury. Patient states she called her pain management physician who instructed her to take an extra muscle relaxant. Patient states this did not help. Patient states she was then referred to come to the emergency department. Patient states she has a history of muscular dystrophy and has had this pain in the past. [facility] Medical History Substance abuse Home Medications colchicine [Mitigare] 0.6 mg PO BID 09/27/18 [History Last Taken 09/26/18] cyclobenzaprine 10 mg PO TID PRN PRN 09/27/18 [History Last Taken 09/13/18] febuxostat [Uloric] 40 mg PO DAILY 09/27/18 [History Last Taken 09/26/18] hydrocodone-acetaminophen 1 ea PO BID PRN 09/27/18 [History Last Taken 09/26/18] metformin 1,000 mg PO DAILY 09/27/18 [History Last Taken 09/26/18] doxycycline monohydrate 100 mg PO BID #20 cap 01/09/20 [Rx Last Taken Unknown] lisinopril 10 mg PO DAILY 01/09/20 [History Last Taken Unknown] pravastatin 40 mg PO QHS 12/05/20 [History Last Taken Unknown] Allergy/AdvReac Type Severity Reaction Status Date / Time acetaminophen [From Tylenol] Allergy Swollen Verified 12/05/20 10:59 lymph glands ibuprofen Allergy Swollen Verified 12/05/20 10:59 lymph glands latex Allergy Swelling Verified 12/05/20 10:59 Penicillins Allergy Swelling Verified 12/05/20 10:59 shellfish derived Allergy Swelling Verified 12/05/20 10:59 Sulfa (Sulfonamide Allergy Swelling Verified 12/05/20 10:59 Antibiotics) 'MYCIN' AdvReac Hives Uncoded 12/05/20 10:59 ID BAND AND HARD PLASTIC AdvReac Rash Uncoded 12/05/20 10:59 Social History Smoking Status: Current every day smoker ROS ROS ED Constitutional Constitutional ED: Denies chills or fever(s) Eyes Eyes: Denies blurry vision or change in vision ENT ENT ED: Denies rhinorrhea or sore throat Cardiovascular Cardiovascular: Denies chest pain or palpitations Respiratory/Chest Respiratory/Chest: Denies cough or dyspnea Gastrointestinal Gastrointestinal: Denies nausea or vomiting Genitourinary Genitourinary ED: Reports urinary frequency; Denies dysuria Musculoskeletal Musculoskeletal: Denies back pain or neck pain Integumentary Denies abscess or rash Neurologic Neurologic: Reports paresthesias; Denies weakness Allergic/Immunologic Allergic/Immunologic ED: Denies mouth swelling or urticaria EXAM Physical Exam Const Vital Signs: 12/05/20 10:57 12/05/20 12:55 Temperature 97.3 F L Temperature Source Temporal Pulse Rate 84 79 Respiratory Rate 16 16 Blood Pressure 100/64 125/76 H Blood Pressure Mean 76 92 Pulse Ox 97 92 Oxygen Delivery Method Room Air Room Air Positive well nourished, well developed and obese General Appearance ED: well developed Nutritional Appearance: obese Neck supple and no JVD Resp normal respiratory effort and clear to auscultation bilaterally Cardio regular rate and regular rhythm GI normal to inspection, nondistended, normoactive bowel sounds and non-tender Palpation: soft Extremity Extremity Narrative: There is tenderness to palpation of the lateral aspect of the right hip and diffuse tenderness over the right foot. There is no deformity. There is no edema or ecchymosis. There is good range of motion. Neuro oriented x3, CN's II-XII intact bilaterally and no sensory deficits noted Sensorium / Orientation: alert Motor Exam: strength 5/5 throughout MDM MDM MDM Narrative Medical decision making narrative: Patient was given a dose of morphine. Patient had minimal relief of her pain with this. Urinalysis was obtained and was within normal limits. Patient was given a repeat dose of morphine. Patient told the nurse that she was not sure if she would be able to care for herself at home. Because of this, certified social workers in health care was consulted. She was able to provide the patient with outpatient services to help her. Patient wants to go home. Patient states her pain has improved at this time. Patient was advised to follow-up with her primary care physician and pain management physician in 3 to 5 days. Patient understood and was agreeable with the plan. All questions were answered. Lab Data Labs: Laboratory Results - last 24 hr 12/05/20 11:58 Urine Color Yellow Urine Clarity Clear Urine pH 6.0 Ur Specific [place] 1.010 Urine Protein Negative Urine Glucose (UA) Normal Urine Ketones Negative Urine Occult Blood Negative Urine Nitrite Negative Urine Bilirubin Negative Urine Urobilinogen 1 H Ur Leukocyte Esterase Negative Urine RBC 0 SEEN Urine WBC 0 SEEN Ur Squamous Epith Cells 0 SEEN Urine Bacteria 0 SEEN Urine Mucus 0 SEEN Discharge Plan Triage Chief Complaint: Lower Extremity Injury ED Provider: Indra Casillas Dx/Rx/DC Orders Clinical Impression: Pain of right lower extremity Instructions: ED Pain, Acute, Uncertain Cause Prescriptions: No Action metformin 500 MG tablet 1,000 mg PO DAILY RF: 0 hydrocodone-acetaminophen 1 EACH tablet 1 ea PO BID PRN (Reason: Pain) RF: 0 febuxostat [Uloric] 40 MG tablet 40 mg PO DAILY RF: 0 colchicine [Mitigare] 0.6 MG capsule 0.6 mg PO BID RF: 0 cyclobenzaprine 10 MG tablet 10 mg PO TID PRN PRN (Reason: Spasms) RF: 0 doxycycline monohydrate 100 MG capsule 100 mg PO BID Qty: 20 RF: 0 lisinopril 10 MG tablet 10 mg PO DAILY RF: 0 pravastatin 40 mg Tablet 40 mg PO QHS RF: 0 Primary Care Provider: Jackie Astorga Referrals: Jackie Astorga, [Primary Care Provider] - 3-5 Days Disposition Disposition: Home, self care
[2020-12-05 12:03] LABS: Bacteria 0 SEEN /hpf (None Seen); Mucous, Urine 0 SEEN /hpf (<or=2+); Red Blood Cells-Urine 0 SEEN /hpf (0-5); Squamous Epithelial Cells - UA 0 SEEN /hpf (5-10); White Blood Cells 0 SEEN /hpf (0-5)
[2020-12-05 12:04] LABS: Color, Urine Yellow (Yellow); Glucose, Dipstick Normal (Normal); Ketone-Dipstick Negative (Negative); Leukocyte Esterase-Dipstick Negative /ul (Negative); Nitrite-Dipstick Negative (Negative); Occult Blood-Urine Negative /ul (Negative); Protein-Dipstick Negative (Negative); Urine Bilirubin Dipstick Negative (Negative); Urine Clarity Clear (Clear); Urine Urobilinogen 1 mg/dl (Normal)
[2020-12-05] MEDS: Morphine 4 MG/ML Syringe IM ×2 (12:06→13:13)
[2020-12-05] MEDS: LORazepam 2 MG/ML Syringe 1 MG IM (12:06)
[2020-12-05 12:55] VITALS: BP 125/76; PULSE 79; RESP 16; O2SAT 92
--- NOTE | 2020-12-05 14:00 | CM.ED ---
Social Work Emergency Department Consulted by Dr. Casillas to assess for discharge needs. Met with patient in room and introduced to social work role. Patient reports to live in home owned by patient's [id number], which is on some family land with the [id number] and other family members living in 2 other homes on the property. Patient reports to survive on bartering services with the [employer] and by food stamps. Patient reports the family has been helping the patient with self care needs at home, but recently patient has been feeling like she is becoming a burden with increased care needs. Patient reports to have complex regional pain syndrome of both lower extremities and myoclonic MD. Patient reports to see Dr. Astorga in [place] and [facility] in [place], [place]. Patient reports home is one floor, to have a wheelchair, walker, cane, crutches, and bedside commode. Patient has been using depends lately, and sometimes patient's [id number] has to come over to help as the other family members are returning back to work with the concerns for COVID lessening in the area. Denies mental health history, denies depression/anxiety/bipolar disorders. Denies any substance use history. Patient did reports last evening was in so much pain that patient said she could understand why people kills themselves. Patient reports this does not mean patient wanted to kill herself and that patient would never do this. Patient reports to be a strong [employer] and knows that if takes own life would not go to [facility], that believes suicide to be a sin. Patient denies any thoughts of suicide at this time, denies an plan or intent. Denies history of attempts. Denies access to lethal means (does have guns but locked up in brother in law's home). Patient reports mostly she wanted to know from this fiction and nonfiction writer prose some options for care, but wants to talk to family first about what the family is comfortable continuing with in regards to helping the patient. Educated to home health care for therapy, nursing, and home health aides. Educated to senior living home care for short term rehab, if home intermittent care is not enough. Broached outpatient therapy but patient feels this would be to hard to get in and out of the house. Provided patient with list of home health agencies and SNF list. Provide this fiction and nonfiction writer prose's name and number to call if patient has questions about information provided. Patient declined for this fiction and nonfiction writer prose to assist with arranging any formal care as patient states she wants to talk to family first. Patient also declined to give any family's names to place as and emergency contact as states has to talk to family first as the family is funny like that. Patient does reports to have biological children, all living out of state. Reports the children are supportive and have offered for patient to move and live with the kids. Patient discharged from the ED with resources given for home going. No other services requested or indicated. -DODIE Peñaloza, BACK TENDER INSULATION BOARD
[2020-12-05 14:30] VITALS: BP 121/74; PULSE 69; RESP 18; O2SAT 97
== END 2020-12-05 14:38 | disposition home or self-care (01) ==
PROVIDERS: Emergency Provider Emergency Medicine
DX: M79.671 Pain in right foot (principal); M25.551 Pain in right hip; R20.2 Paresthesia of skin; G71.00 Muscular dystrophy, unspecified; Z79.899 Other long term (current) drug therapy; F17.200 Nicotine dependence, unspecified, uncomplicated
CPT/HCPCS: 81001; 96372; 99282

== ENCOUNTER 2021-01-24 17:53 | Outpatient (RCR) | payer MEDICAID, SELFPAY ==
--- NOTE | 2021-01-24 19:01 | HP.PTEVAL ---
Patient's Visit Information DAVID GUEVARA is a 55 year old F referred to Physical Therapy by Dr. Pablo Carroll MD with a diagnosis of B LE pain. Date of Evaluation: 01/24/21 Physical Therapist: Blade Spring PT, ATC - Visit Plan Frequency: 2-3x /Week Duration: 2-4 Weeks Plan: Aquatic therapy program consisting of BLE stretching and strengthening, and core stab ex's - Subjective Pt reports swelling in B LE's for 3 months. Pt reports her pain is of insidious onset. Pt reports all of the sudden her ankles started to swell, then her knees started to swell. Pt reports she has had test and xrays throughout her body where she was told she had plantarfascitis, IT band syndrome, MDT, and CRPS. pt reports she is unable to walk or stand for more than 2 minutes secondary to pain and the sense her knees are going to give out. Pt reports her feet are numb, but at times they feel like they are burning on fire. Pt reports nobody can touch er feet to even put lotion on them due to the sensitivity of her feet. Pt reports her goal is to start an aquatic therapy program in order to aid with decreasing her pain. 7/10 pain at rest, 10/10 pain at worst. - Pain B LE's Pain Intensity (Out of 10): 7 Pain Intensity Range: 10 - Objective Neuro: Unable to assess secondary to sensitivity in LE's. MMT: B LE's are grossly 3/5 and severely painful. Observation: B LE's are grossly swollern this date. Mild redness throughout. Transfers: Pt is able to sit to stand with use of B LE's. Gait: Pt is unable to ambulate this date. - Goals Goal 1:: Decrease B LE Pain x 50% to aid with sleep Goal Time Frame: 2-4 Weeks Goal 2:: Increase B LE strength x 1 grade to aid with ambulation Goal Time Frame: 2-4 Weeks Goal 3:: I with HEP Goal Time Frame: 2-4 Weeks - Rehabilitation Potential Physical Therapy Diagnosis: Pt has insidious pain throughout B LE's Rehabilitation Potential: Good - Anticipated Interventions Patient/Client Instruction: Educate patient on: Condition, Plan of Care For the Purpose of:: To improve self management Therapeutic Exercise to Include: Strength training, Flexibilty training, Active ROM, Dynamic Lumbar Stabilization For the Purpose of:: To decrease pain, To increase ROM, To improve muscle performance and motor function Thank you for the opportunity to evaluate your patient. For Medicare and Medicare HMO plans, please review the plan of care and approve it. It will need to be FAXED BACK to us at [phone] for Medicare purposes. For Medicare only, by signing this I certify the plan of care. Please let me know if there are questions or concerns regarding this plan of care. Physician Signature: Date:
--- NOTE | 2021-08-26 15:46 | HP.PT.NRP ---
DAVID GUEVARA was seen in my office for initial evaluation on 01/24/21. The following Plan of Care was established for this patient: Initial Frequency: 2-3x /Week Initial Duration: 2-4 Weeks Patient/Client Instruction: Educate patient on: Condition, Plan of Care For the Purpose of:: To improve self management Therapeutic Exercise to Include: Strength training, Flexibilty training, Active ROM, Dynamic Lumbar Stabilization For the Purpose of:: To decrease pain, To increase ROM, To improve muscle performance and motor function This patient was last seen in our office . Pertinent comments regarding their Physical therapy will appear below: Pt was evaluated for B LE pain on the date of 07/01/21. Pt has not returned through today and is therefore discontinued at this time. At this point I will be discontinuing this patient from physical therapy. I would be happy to see this patient again in the future if found appropriate by the physician. Thank you! Blade Spring, PT, ATC Balance/Gait/Functional tests - Balance/Special Test Scores Lower Extremity Functional Score: 1
== END 2021-01-24 19:00 | disposition home or self-care (01) ==
LOC: PT 17:53
PROVIDERS: Referring Provider Specialist; Visit Provider Specialist
DX: S83.8X2D Sprain of other specified parts of left knee, subsequent encounter (principal); X58.XXXD Exposure to other specified factors, subsequent encounter; M25.552 Pain in left hip
CPT/HCPCS: 97161

== ENCOUNTER 2024-03-25 16:25 | Emergency (ER) | payer MEDICAID, SELFPAY ==
[2024-03-25 16:27] VITALS: BP 130/69; PULSE 84; RESP 18; TEMP 36.4; O2SAT 97; BMI 36.8
[2024-03-25 17:37] LABS: Absolute Lymphocyte Count 4.07 X10^3/uL (0.83-4.51); Absolute Neutrophil Count 4.3 X10^3/uL (2.0-7.7); Basophil# 0.08 X10^3/uL; Basophil% 0.9 % (0-1); Eosinophil# 0.25 X10^3/uL; Eosinophils% 2.7 % (0-5); Hemoglobin 14.8 g/dL (12.0-15.0); Lymphocyte # 4.07 X10^3/ul (0.83-4.51); Lymphocyte % 44.5 % (19-41); Mean Corp Hgb Conc 32.9 g/dL (32-36); Mean Corpuscular Hgb 31.7 pg (27.0-32.0); Mean Corpuscular Volume 96.4 fL (81-99); Mean Platelet Vol. 10.3 fl (6.2-12.0); Monocyte# 0.39 X10^3/uL; Monocyte% 4.3 % (0-10); NRBC Flagged by Analyzer 0 % (0-5); Neutrophil % 47.1 % (47-70); POSITIVE MORPHOLOGY YES; Platelet Count 194 K/mm3 (150-450); RBC Distribution Width CV 13.1 % (11.6-14.6); RBC Distribution Width SD 46.1 fl (35.1-43.9); Red Blood Count 4.67 M/mm3 (4.2-5.4); White Blood Count 9.1 K/mm3 (4.4-11.0)
[2024-03-25 17:40] LABS: ALB/GLOB Ratio 0.9 RATIO (0.9-2.4); AST(SGOT) 66 U/L (15-37); Alanine Aminotransfer ALT/SGPT 53 U/L (13-56); Albumin, Serum 3.6 g/dL (3.2-5.0); Alkaline Phosphatase 103 U/L (45-117); Anion Gap 7 (5-15); BUN 13 mg/dL (7-18); BUN/Creat Ratio 13.1 RATIO (10-20); Calcium,Total 9.2 mg/dL (8.5-10.1); Chloride 101 mmol/L (98-107); Creatinine, Serum 0.99 mg/dL (0.55-1.02); EST Glomerular Filtration Rate 61 mL/min (>60); Est Glom Filt Rate - Afr Amer 74 mL/min (>60); Estimated Creatinine Clearance 67.65 ml/min; Globulin 4.1 g/dL (2.2-4.2); Glucose 274 mg/dL (74-106); Potassium 4.5 mmol/L (3.5-5.1); Protein, Total 7.7 g/dL (6.4-8.2); Sodium Level 137 mmol/L (136-145)
[2024-03-25 17:50] LABS: Differential Indicated SCAN CRITERIA MET
[2024-03-25 18:26] VITALS: BP 134/78; PULSE 64; RESP 16; O2SAT 98
[2024-03-25 18:39] LABS: Atypical Lymphocyte 2+ %; Differential Comment SCANNED
[2024-03-25 18:40] LABS: Reactive Lymphocyte RARE
--- NOTE | 2024-03-25 18:42 | EX.ED.DYSGE1 ---
HPI History of Present Illness Chief Complaint: Hyperglycemia [facility] Medical History (Updated 03/25/24 @ 18:26 by Melissa Garcia) Hypertension Diabetes Diabetes 1.5, managed as type 2 Complex regional pain syndrome i of lower limb, bilateral Muscular dystrophy Lupus Substance abuse Home Medications ?Medication ?Instructions ?Recorded ?Last Taken ?Type colchicine 0.6 mg capsule 0.6 mg PO BID 09/27/18 09/26/18 History (Mitigare) cyclobenzaprine 10 mg tablet 10 mg PO TID PRN PRN Spasms 09/27/18 09/13/18 History febuxostat 40 mg tablet (Uloric) 40 mg PO DAILY 09/27/18 09/26/18 History hydrocodone-acetaminophen 5-325mg 1 ea PO BID PRN Pain 09/27/18 09/26/18 History 5mg-325mg metformin 500 mg tablet 1,000 mg PO DAILY 09/27/18 09/26/18 History doxycycline monohydrate 100 mg 100 mg PO BID #20 caps 01/09/20 Unknown Rx capsule lisinopril 10 mg tablet 10 mg PO DAILY 01/09/20 Unknown History pravastatin 40 mg tablet 40 mg PO QHS 12/05/20 Unknown History Allergy/AdvReac Type Severity Reaction Status Date / Time Environmental Allergies: Allergy Mild Rash Verified 03/25/24 16:27 Uncoded acetaminophen (From Tylenol) Allergy Swollen Verified 03/25/24 16:27 lymph glands erythromycin base Allergy Hives Verified 03/25/24 16:27 ibuprofen Allergy Swollen Verified 03/25/24 16:27 lymph glands latex Allergy Swelling Verified 03/25/24 16:27 Penicillins Allergy Swelling Verified 03/25/24 16:27 shellfish derived Allergy Swelling Verified 03/25/24 16:27 Sulfa (Sulfonamide Allergy Swelling Verified 03/25/24 16:27 Antibiotics) Social History Smoking Status: Current every day smoker tobacco type: cigarettes EXAM Physical Exam Const Vital Signs: 03/25/24 16:27 03/25/24 18:23 03/25/24 18:26 Temperature 97.6 F L Temperature Source Temporal Pulse Rate 84 64 Respiratory Rate 18 16 Respiratory Effort Short of Breath Blood Pressure 130/69 H 134/78 H Blood Pressure Mean 89 96 Pulse Ox 97 98 Oxygen Delivery Method Room Air Room Air MDM MDM MDM Narrative Medical decision making narrative: HISTORY OF PRESENT ILLNESS: 58-year-old female presents with concern for hyperglycemia. The patient states she has had elevated blood sugar past 4 days ranging to 326. Patient's last blood sugar was 326. She notes she takes metformin. She also complains of associated dizziness, confusion abdominal pain. Denies dizziness at this time. Denies history of abdominal surgeries. Last bowel movement was today. No urinary complaints denies focal numbness weakness or loss sensation. Patient denies chest pain, shortness of breath, syncope. REVIEW OF SYSTEMS: Pertinent positives: Abdominal pain, hyperglycemia Pertinent negatives: As per HPI PHYSICAL EXAM: Nursing triage notes reviewed, Vital signs reviewed Constitutional: please see [facility] HENT: MMM Eyes: Pupils equal round and reactive to light, Extraocular muscles intact Neck: No stridor, no JVD, full neck ROM Lungs: Clear to auscultation, No wheezing or rales. No increased work of breathing, no conversational dyspnea, no accessory muscle use, no nasal flaring. No respiratory distress noted Heart: Regular rate and rhythm, No murmurs, No rubs and No gallops, 2+ distal pulses (radial, femoral, posterior tibial) in all extremities Abdomen: Soft, there is no tenderness, rigidity, rebound or guarding, no obvious peritoneal signs, no palpable pulsatile abdominal masses, no auscultated abdominal bruit : No CVAT Extrem alert and oriented x3, neuro exam at baseline, cranial nerves II through XII are intact. No pain with extraocular muscle movement. There is negative test of skew. 5 of 5 strength in upper and lower extremities in flexion extension. Intact sensation to light touch in upper and lower extremity dermatomes. No truncal or extremity ataxia. No dysdiadochokinesia. Normal gait. 2+ reflexes in upper and lower extremities. No meningeal signs. Negative Babinski. NIH of 0. Skin: No rash or lesions noted MEDICAL DECISION MAKING: Chief Complaint: Hyperglycemia External records reviewed: Imaging reviewed: CT scan of the abdomen pelvis 2017 shows moderate hydronephrosis of left Factors affecting care: Type 2 diabetes, lupus, rheumatoid arthritis, complex regional pain, reflux and without addition Social determinants of health: no tobacco abuse [facility] Narrative: Patient was hemodynamically stable, afebrile, nontoxic-appearing. Exam without focal neurologic deficit. Patient alert and orient x 3 did not appear confused in any way. Her abdomen was soft and nontender she had no appreciable tenderness. While I considered small bowel obstruction, perforation, acute surgical pathology of the abdomen thought these are less likely given the patient benign abdominal exam and no appreciable tenderness. As potential etiologies her dizziness was concerning for multiple etiologies including posterior circulation CVA however the patient had no focal neurologic deficits, no ataxia and negative hints exam. Evalose patient for posterior circulation CVA or other acute intracranial normality given the patient's intact mental status and nonfocal neurologic exam. I was more concerned about hyperglycemia and potentially DKA given the patient's report. I obtain labs to further elucidate etiology of the patient's complaint I considered the following differential diagnosis: DKA, hyperglycemia, infection ALL IMAGES (IF OBTAINED) HAVE BEEN PERSONALLY REVIEWED AND INTERPRETED BY MYSELF. Labs overall reassuring: CBC without leukocytosis, severe anemia, no thrombocytopenia. BMP without evidence of significant electrolyte abnormalities, no anion gap, no acute kidney injury. There is no sign of metabolic acidosis to suggest DKA and anion gap was normal further making DKA less likely Urinalysis without glucosuria, no signs of infection The patient and/or family, caregivers express understanding. The patient and/or family, caregivers agrees with the plan. Shared decision making: I will have a discussion with the patient and or visitors regarding risk/benefits of further testing or admission. They will be made aware of of the risk/benefits inherent in this decision they will be given the opportunity to voice understanding. Total critical care time today provided was at least 0 minutes. This excludes separately billable procedures. Critical care time (if documented) is secondary to the patient having high probability of clinically significant/life threatening deterioration in the patient's condition which required my urgent intervention. Impression: 1. Hyperglycemia 2. History of type 2 diabetes Dispo: Discharge home This note was generated with [employer] dictation software. It may contain incorrect words, spelling, and punctuation that were not noted in review of the chart prior to signing. Lab Data Labs: Laboratory Results - last 24 hr 03/25/24 03/25/24 17:05 18:38 WBC 9.1 RBC 4.67 Hgb 14.8 Hct 45.0 MCV 96.4 MCH 31.7 MCHC 32.9 RDW Std Deviation 46.1 H RDW Coeff of Didi 13.1 Plt Count 194 MPV 10.3 Immature Gran % (Auto) 0.500 Neut % (Auto) 47.1 Lymph % (Auto) 44.5 H Armstrong % (Auto) 4.3 Eos % (Auto) 2.7 Baso % (Auto) 0.9 Absolute Neuts (auto) 4.3 Absolute Lymphs (auto) 4.07 Nucleated RBC % 0 Differential Comment SCANNED Atypical Lymphocytes 2+ Reactive Lymphocytes RARE Sodium 137 Potassium 4.5 Chloride 101 Carbon Dioxide 29.0 Anion Gap 7 BUN 13 Creatinine 0.99 Estim Creat Clear Calc 67.65 Est GFR (MDRD) Af Amer 74 Est GFR (MDRD) Non-Af 61 BUN/Creatinine Ratio 13.1 Glucose 274 H Calcium 9.2 Total Bilirubin 0.20 AST 66 H ALT 53 Alkaline Phosphatase 103 Total Protein 7.7 Albumin 3.6 Globulin 4.1 Albumin/Globulin Ratio 0.9 Urine Color Yellow Urine Clarity Cloudy Urine pH 6.0 Ur Specific [place] 1.020 Urine Protein 30 H Urine Glucose (UA) Normal Urine Ketones Negative Urine Occult Blood Negative Urine Nitrite Negative Urine Bilirubin Negative Urine Urobilinogen 1 H Ur Leukocyte Esterase 25 H Urine RBC 0 SEEN Urine WBC 10-25 SEEN Ur Squamous Epith Cells 10-25 SEEN Urine Bacteria 4+ Urine Mucus 0 SEEN Discharge Plan Triage Chief Complaint: Hyperglycemia ED Provider: Jin Jensen Dx/Rx/DC Orders Prescriptions: No Action metformin 500 MG tablet 1,000 mg PO DAILY hydrocodone-acetaminophen 1 EACH tablet 1 ea PO BID PRN (Reason: Pain) febuxostat [Uloric] 40 MG tablet 40 mg PO DAILY colchicine [Mitigare] 0.6 MG capsule 0.6 mg PO BID cyclobenzaprine 10 MG tablet 10 mg PO TID PRN PRN (Reason: Spasms) doxycycline monohydrate 100 MG capsule 100 mg PO BID Qty: 20 0RF lisinopril 10 MG tablet 10 mg PO DAILY pravastatin 40 mg Tablet 40 mg PO QHS Primary Care Provider: Jackie Astorga Referrals: Jackie Astorga DO [Primary Care Provider] - Print Language: Italian
[2024-03-25 18:44] LABS: Mucous, Urine 0 SEEN /hpf (<or=2+); Red Blood Cells-Urine 0 SEEN /hpf (0-5)
[2024-03-25 18:50] LABS: Color, Urine Yellow (Yellow); Glucose, Dipstick Normal (Normal); Ketone-Dipstick Negative (Negative); Leukocyte Esterase-Dipstick 25 /ul (Negative); Nitrite-Dipstick Negative (Negative); Occult Blood-Urine Negative /ul (Negative); Protein-Dipstick 30 mg/dl (Negative); Urine Bilirubin Dipstick Negative (Negative); Urine Clarity Cloudy (Clear); Urine Urobilinogen 1 mg/dl (Normal)
[2024-03-25 19:06] LABS: Bacteria 4+ /hpf (None Seen); Squamous Epithelial Cells - UA 10-25 SEEN /hpf (5-10)
[2024-03-25 19:07] LABS: White Blood Cells 10-25 SEEN /hpf (0-5)
[2024-03-25 20:00] VITALS: BP 132/64; PULSE 76; RESP 18; TEMP 36.3; O2SAT 92
== END 2024-03-25 20:30 | disposition home or self-care (01) ==
PROVIDERS: Emergency Provider Emergency Medicine; Visit Provider Emergency Medicine
DX: E11.65 Type 2 diabetes mellitus with hyperglycemia (principal); Z79.84 Long term (current) use of oral hypoglycemic drugs; F17.210 Nicotine dependence, cigarettes, uncomplicated; I10 Essential (primary) hypertension; Z79.899 Other long term (current) drug therapy
CPT/HCPCS: 80053; 81001; 85025; 99282